=== PATIENT | female | born 1960 | race Caucasian/White ===

== ENCOUNTER 2017-12-13 19:54 | Observation (INO) | payer SELFPAY ==
--- NOTE | 2017-12-13 20:17 | PDOC ---
Rapid Medical Evaluation Time Seen by Provider: 12/13/17 20:09 Medical Evaluation: Allergies Allergy/AdvReac Type Severity Reaction Status Date / Time No Known Drug Allergies Allergy Verified 08/04/14 08:33 12/13/17 20:09 I have performed a brief in-person evaluation of this patient. The patient presents with a chief complaint of: 2 DAYS with WORSENING OF DISCOLORATION and pain TO bilateral legs, No fevers/ CP/ Palpitations. + Hx bilateral lazor vein ablation 6 years ago. Pertinent physical exam findings: non blanching macular rash extending up to groin bilateral with pain/ vasculitis appearance I have ordered the following: CBC, CMP, ESR, CRP, The patient will proceed to the ED for further evaluation. 12/13/17 20:10 12/13/17 20:17
[2017-12-13 20:46] LABS: URINE APPEARANCE CLEAR; URINE BILIRUBIN NEGATIVE (<2.0 mg/dL); URINE COLOR STRAW; URINE GLUCOSE (UA) NEGATIVE (NEGATIVE); URINE KETONE NEGATIVE (NEGATIVE); URINE LEUK ESTERASE NEGATIVE (NEGATIVE); URINE NITRITE NEGATIVE (NEGATIVE); URINE PROTEIN NEGATIVE (NEGATIVE); URINE UROBILINOGEN NEGATIVE mg/dL (0.2-1.0)
[2017-12-13 20:50] LABS: EPI CELLS RARE /HPF (FEW)
[2017-12-13 22:01] LABS: INR 1.01 (0.83-1.09); PROTHROMBIN TIME (PATIENT) 11.9 SEC (9.7-13.0)
[2017-12-13 22:03] LABS: ACTIVATED PTT 28.1 SECONDS (25.2-36.5)
[2017-12-13 22:06] LABS: BASO % 0.3 % (0-2.0); EOS % 1.7 % (0-4.5); HEMATOCRIT 26.9 % (32.4-45.2); HEMOGLOBIN 9.1 GM/dL (10.7-15.3); MCH 29.4 pg (25.7-33.7); MCHC 33.8 g/dl (32.0-36.0); MEAN CELL VOLUME 87.2 fl (80-96); MEAN PLT VOLUME 9.1 fl (7.5-11.1); MONO % 5.2 % (3.8-10.2); NEUT % 76.8 % (42.8-82.8); PLATELET COUNT 270 K/MM3 (134-434); RBC 3.09 M/mm3 (3.60-5.2); RDW 15.5 % (11.6-15.6); WHITE BLOOD COUNT 5.2 K/mm3 (4.0-10.0)
[2017-12-13 22:12] LABS: ALBUMIN 3.4 g/dl (3.4-5.0); ALK PHOS 109 U/L (45-117); ANION GAP 11 MMOL/L (8-16); BILIRUBIN,TOTAL 0.5 mg/dL (0.2-1); BLOOD UREA NITROGEN 26 mg/dL (7-18); CALCIUM 8.2 mg/dL (8.5-10.1); CHLORIDE 96 mmol/L (98-107); CO2 26 mmol/L (21-32); CREATININE 1.1 mg/dL (0.55-1.3); GLUCOSE,RANDOM 96 mg/dL (74-106); POTASSIUM 3.1 mmol/L (3.5-5.1); SGOT/AST 36 U/L (15-37); SGPT/ALT 37 U/L (13-61); SODIUM 133 mmol/L (136-145); TOT PROT 9.2 g/dl (6.4-8.2)
[2017-12-13 22:20] LABS: URINE MUCUS RARE
--- NOTE | 2017-12-13 22:24 | PDOC ---
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 Patient reports that she has a history of bilateral lower extremity edema however this is the worse it's been. In the past reports similar rash/redness which resolves 1-2 weeks. PCP: Dr. Chawla ([facility]) 12/13/17 22:42 12/13/17 23:00 Past History - Past Medical History Allergies/Adverse Reactions: Allergies Allergy/AdvReac Type Severity Reaction Status Date / Time No Known Drug Allergies Allergy Verified 08/04/14 08:33 Home Medications: Ambulatory Orders Levothyroxine [Synthroid -] 175 mcg PO DAILY 04/01/12 Losartan Potassium 50 mg PO DAILY 04/01/12 Atorvastatin Ca [Lipitor -] 20 mg PO HS 08/01/14 Hydrochlorothiazide 25 mg PO DAILY 12/14/17 Pilocarpine HCl 5 mg PO TID 12/14/17 Ferrous Sulfate 325 mg PO DAILY #30 tablet 12/15/17 Anemia: No Asthma: No Cancer: No Cardiac Disorders: No CVA: No COPD: No CHF: No DVT: No Dementia: No Diabetes: No GI Disorders: No Disorders: No HTN: Yes Hypercholesterolemia: No Liver Disease: No Seizures: No Thyroid Disease: Yes (HYPO AND HYPER. MEDS CHANGE [id number]) - Surgical History Abdominal Surgery: No Appendectomy: No Cardiac Surgery: No Cholecystectomy: No Lung Surgery: No Neurologic Surgery: No Orthopedic Surgery: No - Suicide/Smoking/Psychosocial Hx Smoking Status: No Smoking History: Never smoked Number of Cigarettes Smoked Daily: 0 Information on smoking cessation initiated: No Hx Alcohol Use: No Drug/Substance Use Hx: No Substance Use Type: None Hx Substance Use Treatment: No *Physical Exam - Vital Signs Last Vital Signs Temp Pulse Resp BP Pulse Ox 98 F 100 H 20 112/66 100 12/13/17 20:09 12/13/17 20:09 12/13/17 20:09 12/13/17 20:09 12/13/17 20:09 - Physical Exam General Appearance: Yes: Appropriately Dressed Extremity: positive: Erythema, Inflammation (b/l lower extremity erythema with petechial ) ED Treatment Course - LABORATORY CBC & Chemistry Diagram: 12/15/17 07:30 12/14/17 16:00 - ADDITIONAL ORDERS Additional order review: Laboratory Results 12/13/17 12/13/17 12/13/17 21:40 21:40 21:40 PT with INR 11.90 INR 1.01 PTT (Actin FS) 28.1 Sodium 133 L Potassium 3.1 L Chloride 96 L Carbon Dioxide 26 Anion Gap 11 BUN 26 H Creatinine 1.1 Creat Clearance w eGFR 51.57 Random Glucose 96 Calcium 8.2 L Total Bilirubin 0.5 AST 36 ALT 37 Alkaline Phosphatase 109 C-Reactive Protein 4.6 H Total Protein 9.2 H Albumin 3.4 Urine Color Urine Appearance Urine pH Ur Specific [place] Urine Protein Urine Glucose (UA) Urine Ketones Urine Blood Urine Nitrite Urine Bilirubin Urine Urobilinogen Ur Leukocyte Esterase Urine WBC (Auto) Urine RBC (Auto) Ur Epithelial Cells 12/13/17 20:20 PT with INR INR PTT (Actin FS) Sodium Potassium Chloride Carbon Dioxide Anion Gap BUN Creatinine Creat Clearance w eGFR Random Glucose Calcium Total Bilirubin AST ALT Alkaline Phosphatase C-Reactive Protein Total Protein Albumin Urine Color Straw Urine Appearance Clear Urine pH 7.0 Ur Specific [place] 1.006 L Urine Protein Negative Urine Glucose (UA) Negative Urine Ketones Negative Urine Blood 1+ H Urine Nitrite Negative Urine Bilirubin Negative Urine Urobilinogen Negative Ur Leukocyte Esterase Negative Urine WBC (Auto) 1 Urine RBC (Auto) 1 Ur Epithelial Cells Rare 12/13/17 21:40 RBC 3.09 L MCV 87.2 MCHC 33.8 RDW 15.5 MPV 9.1 Neutrophils % 76.8 Lymphocytes % 16.0 Monocytes % 5.2 Eosinophils % 1.7 D Basophils % 0.3 Medical Decision Making - Medical Decision Making A: vasculitis P: labs US 12/13/17 23:11 Patient is pending CTA chest and us of lower extremities. patient signed out to Dr. Ortega/ Dr barahona *DC/Admit/Observation/Transfer Diagnosis at time of Disposition: Vasculitis - Discharge Dispostion Disposition: HOME Condition at time of disposition: Improved Decision to Admit order: Yes - Prescriptions - Referrals - Patient Instructions - Post Discharge Activity
[2017-12-13] MEDS ORDERED: POTASSIUM CHLORIDE TABS 20 MEQ TABLET.ER (FP) PO ONE ×2 (22:25→22:41)
[2017-12-13] MEDS ORDERED: SODIUM CHLORIDE 0.9% 1000 ML INFUS.BAG IV ONE (22:55)
[2017-12-14] MEDS ORDERED: LACTATED RINGERS SOLUTION 1,000 ML/1,000 ML INFUS.BAG IV SCH (01:45)
--- NOTE | 2017-12-14 01:57 | HP ---
CHIEF COMPLAINT: B/L lower extremity edema PCP: HISTORY OF PRESENT ILLNESS: Patient is a 57 y/o female with a history of hypertension and hypothyroidism who presents with bilateral lower leg swelling and rash. Patient notes these rashes started 6 years ago and she has them on and off throughout the year. She notes at most she has them 15 times in a year. She reports that whenever she is on a plane or around heat they typically precipitate. 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 This rash and the swelling began yesterday and has continued. When she gets these symptoms they can last anywhere from a couple of days to a week. She feels pressure in her legs from the swelling that is uncomfortable. To help her symptoms she typically puts her legs up and puts cold packs on them which help a little. She uses multiple home remedies including, Epson salt, apple cider vinegar, etc. which have had little benefit. She has followed up with a PCP for these symptoms and only found to have high protein. She has also followed up with Rheumatology who has not yet provided a diagnosis for her. The rash extends from the dorsum of her foot up to below the umbilicus. She denies any sick contacts recently. She reports she feels she has a dry mouth, and moderately dry eyes. She reports she has " pre arthritis" that began a few years ago and her skin is hypersensitive to pain. She denies any other rashes, URI, nausea, vomiting, diarrhea, dysuria, hematuria , chest pain, or cough. ER course was notable for: (1) (2) (3) Recent Travel: PAST MEDICAL HISTORY: HTN and hypothyroidism PAST SURGICAL HISTORY: R knee replacement Social History: Smoking: denies Alcohol: denies Drugs: Family History: Allergies No Known Drug Allergies Allergy (Verified 08/04/14 08:33) HOME MEDICATIONS: Home Medications Medication Instructions Recorded Levothyroxine [Synthroid -] 175 mcg PO DAILY 04/01/12 Losartan Potassium 50 mg PO DAILY 04/01/12 Atorvastatin Ca [Lipitor -] 20 mg PO HS 08/01/14 REVIEW OF SYSTEMS CONSTITUTIONAL: Absent: fever, chills, diaphoresis, generalized weakness, malaise, loss of appetite, weight change HEENT: Absent: rhinorrhea, nasal congestion, throat pain, throat swelling, difficulty swallowing, mouth swelling, ear pain, eye pain, visual changes CARDIOVASCULAR: Absent: chest pain, syncope, palpitations, irregular heart rate, lightheadedness , peripheral edema RESPIRATORY: Absent: cough, shortness of breath, dyspnea with exertion, orthopnea, wheezing, stridor, hemoptysis GASTROINTESTINAL: Absent: abdominal pain, abdominal distension, nausea, vomiting, diarrhea, constipation, melena, hematochezia GENITOURINARY: Absent: dysuria, frequency, urgency, hesitancy, hematuria, flank pain, genital pain MUSCULOSKELETAL: lower extremity swelling Absent: myalgia, arthralgia, back pain, neck pain SKIN: rash Absent: itching, pallor HEMATOLOGIC/IMMUNOLOGIC: Absent: easy bleeding, easy bruising, lymphadenopathy, frequent infections ENDOCRINE: Absent: unexplained weight gain, unexplained weight loss, heat intolerance, cold intolerance NEUROLOGIC: Absent: headache, focal weakness or paresthesias, dizziness, unsteady gait, seizure, mental status changes, bladder or bowel incontinence PSYCHIATRIC: Absent: anxiety, depression, suicidal or homicidal ideation, hallucinations. PHYSICAL EXAMINATION Vital Signs - 24 hr 12/13/17 20:09 Temperature 98 F Pulse Rate 100 H Respiratory 20 Rate Blood Pressure 112/66 O2 Sat by Pulse 100 Oximetry (%) GENERAL: Awake, alert, and fully oriented, in no acute distress. HEAD: Normal with no signs of trauma. EYES: Pupils equal, round and reactive to light, extraocular movements intact, EARS, NOSE, THROAT:. Moist mucous membranes. NECK: Normal range of motion, supple without lymphadenopathy, JVD, or masses. LUNGS: Breath sounds equal, clear to auscultation bilaterally. No wheezes, and no crackles. No accessory muscle use. HEART: Regular rate and rhythm, normal S1 and S2 without murmur, rub or gallop. ABDOMEN: Tenderness to palpation RUQ. No hepatomegaly or splenomegaly. MUSCULOSKELETAL: Normal range of motion at all joints. No bony deformities or tenderness. No CVA tenderness. LOWER EXTREMITIES: 2+ pulses, warm. No calf tenderness.BL non pitting edema, NEUROLOGICAL: Cranial nerves II-XII intact. Normal speech. PSYCHIATRIC: Cooperative. Good eye contact. Appropriate mood and affect. SKIN: palpable purpura from dorsum of feet up to below umbilicus, more diffuse as closer to trunk Laboratory Results - last 24 hr CBC, BMP 12/13/17 21:40 12/13/17 21:40 ASSESSMENT/PLAN: Patient is a 57 y/o female with a history of hypertension and hypothyroidism who presents with bilateral lower leg swelling and rash. #bilateral LL swelling with purpuric rash, likely 2/2 to rheumotologic condition - increased protein at 9.2, increased CRP 4.6 - f/u consult Dr. Martino - f/u rheumatoid labs ordered - f/u iron studies, vitamin levels - f/u Derm consult, Dr. Henderson for skin biopsy - monitor on obs - unlikely PE or DVT, ddimer elevated [id number] - vascular duplex negative for DVT - CTA: no evidence of PE #Hypothyroidism - continue levothyroixine - f/u TSH #hyponatremia - f/u Na 133 - f/u serum osmoles, urine osmolality, urine Na - continue LR, and reevaluate in the morning #normocytic anemia - f/u iron studies, ferritin, transferrin #HTN - continue losartan Visit type - Emergency Visit Emergency Visit: Yes ED Registration Date: 12/14/17 Care time: The patient presented to the Emergency Department on the above date and was hospitalized for further evaluation of their emergent condition. - New Patient This patient is new to me today: Yes Date on this admission: 12/14/17 - Critical Care Critical Care patient: No
[2017-12-14 02:59] LABS: LDH 185 U/L (84-246)
--- NOTE | 2017-12-14 03:46 | PN ---
Teaching Attending Note Name of Resident: Rohini Ortega ATTENDING PHYSICIAN STATEMENT I saw and evaluated the patient. I reviewed the resident's note and discussed the case with the resident. I agree with the resident's findings and plan as documented. SUBJECTIVE: Patient is a 57 y/o HF with a PMH significant for HTN, Hypothyroidism, recurring LE rash for 'years'; today she presents to the hospital with a CC of worsening of he recurring LE rash. Please see resident note for further historical details. She has had a recurring sym LE rash extending from her feet up to her knees (but higher this time); it is beefy red and non-blanching, no petechiae, non-palpable persay but some of the larger areas do appear different than the surrounding skin. It is barely pruritic and she is not scratching. She has tried seeing MDs for this as an outpatient but has so far been unsuccessful-she got into see rheum before and her symptoms resolved (and they usually resolve in several days) prior to seeing the MD so there 'wasn't anything they could do' per the patient. She usually uses home remedies at home to help clear her sx; this includes creams and apple cider vinegar. Things that make it flare up are heat and high altitudes; she just started working in kitchen. No new soaps, detergents; no asthma or URI sx. Nobody else she knows has these sx. Never had any biopsy. Never had any diagnosis offered. The reason she will be admitted today is that this occurance is more severe in nature than her prior flare ups. Will consult rheumatology and dermatology. 10 sys ROS done and negative aside from HPI PMH and PSH per chart Denies EtOH, drug use FH asked and noncontributory for rheum issues, etc. OBJECTIVE: VSS, labs reviewed, imaging pending NAD AAO resting in bed with family at bedside B/L LE with purpuric spotting that coallesces into large patches extending sym b /l up her knees; nonblanching, no excoriations, no s/s trauma. Nonpainful to touch. NT ND +BS RRR s1/2 no mgr Lungs CTAB with sym exp NC AT EOMI PERRLA CN2-12 grossly intact with no focal neuro deficits CTA pending LE dopplers negative Rheum workup pending Anemia workup pending ER ordered what appears to be DIC pannel; negative but elevated D-Dimer to 6k Hb 9, Na 133, K 3.1, 1+ hematuria. High serum protein which she tells me is chronic ASSESSMENT AND PLAN: Mrs. Simeon is a 57 y/o HF with a PMH significant for HTN, hypothyroidism who presents with recurring LE rash (has been happening for years) that is worse today than previous flare ups. She has never reached a diagnosis for this. She is also found to have a largely elevated D-Dimer and thus will be brought to the floor for further tx and monitoring. 1) Lower Extremity Purpuric Rash -Differential is broad; considering rheum/derm diagnosis. Will need more lab information and more tests before we venture to make a specific diagnosis. Concern of course existing for vasculitis given elevated ESR and CRP with the presentation. Hemodynamically stable and has had this in the past and was self resolving; no s/s systemic involvement. Will hold off on treating at this time ; if somehow this worsens and we are forced to empirically tx steroids may be reasonable. Should mention fibrin, etc. wnl (ER screened for DIC) -Consulting Rheumatology and Dermatology -Obtaining JACQUES screen, RF, ANCA. Checking HCV and HIV screens. Working up anemia/investigating hyperproteinemia which may or may not be related to this issue 2) Elevated D-Dimer -Followup on CTA; if negative investigate other causes. 3) Normocytic Anemia -Will elucidate baseline. Checking iron studies, B12/Folate, reticulocyte count , LDH, peripheral smear -Trend CBC; XF threshold 2. 4) HTN -Monitor and keep <160mmHg here 5) Hypothyroid -Check TSH 6) Obesity (BMI 39) -Nipple Maker when clincially appropriate 7) 1+ Hematuria -Monitor, followup outpatient. 8) Euvolemic Hyponatremia -Na 133; checking serum/urine osm and urine Na -Empirically hydrating with low rate isotonic; recheck in AM and adjust fluids as needed Full Code FENA -LR@75 -Replace K -Regular diet -As tolerated
[2017-12-14] MEDS ORDERED: POTASSIUM CHLORIDE 20 MEQ PREMIX IVPB 100 ML IVPB ONE (05:40)
[2017-12-14] MEDS ORDERED: LEVOTHYROXINE NA 75 MCG TABLET (FP) ONE (06:50)
[2017-12-14] MEDS ORDERED: LEVOTHYROXINE NA 100 MCG TABLET (FP) ONE (06:50)
[2017-12-14] MEDS: LEVOTHYROXINE 100 MCG, LEVOTHYROXINE 75 MCG PO SCH (06:55)
[2017-12-14 08:39] VITALS: BMI 39.6
[2017-12-14] MEDS: LOSARTAN POTASSIUM 50 MG TABLET (FP) PO SCH (09:52)
[2017-12-14] MEDS ORDERED: LEVOTHYROXINE NA 75 MCG TABLET (FP) PO SCH (10:00)
--- NOTE | 2017-12-14 13:11 | PN ---
Teaching Attending Note Name of Resident: Jerome Vallejo ATTENDING PHYSICIAN STATEMENT I saw and evaluated the patient. I reviewed the resident's note and discussed the case with the resident. I agree with the resident's findings and plan as documented. SUBJECTIVE:c/o diffuse rash and pedal swelling. states rash has been intermittent over the past 6 years. no pattern of how long the rash last but usually several days to weeks. self resolves. seems to be exacerbated by heat and prolonged standing. self resolves. states she has diffuse pain in her legs. saw rheum once for it but did not have rash at the time and unclear what workup if any was done. denies Cp, SOB, fever, chills, n/v/C/D denies OBJECTIVE: Last Vital Signs Temp Pulse Resp BP Pulse Ox 98.1 F 72 16 109/55 L 98 12/14/17 08:08 12/14/17 08:08 12/14/17 08:08 12/14/17 08:08 12/14/17 08:08 General NAD CV S1 s2 RRR no miurmur/rub/gallop Lungs CTA B/L no wheezing/rale/rhonchi Abdomen soft NT/ND Extremities diffuse rash on both LE. irregular, does not kade not tender. spreads up to and several irregular sized spots on the lower abdomen. lesions are not raised. non pitting edema equal in both extremities ASSESSMENT AND PLAN: 57yo F with PMH hypothyroid and HTN presented to the Er with diffuse rash on B/ L LE 1. B/L LE rash-unclear etiology. possible vascutlitic vs vasc insufficiency however is also noted on the abdomen. Elevated ESR/CRP 2. Pedal swelling- dopplers neg for DVT. will check echo to r/o CHF 3. HTN - controlled. cont meds 4. Hypothyroid- on LT4 5. hypokalemia- resolved 6. Anemia- no signs of bleeding. iron panel pending. no indication for transfusion 7. DVT ppx- EAM 8. spoke with daughter present at bedside. all questions answered. verbalized understanding and agreement with plan.
--- NOTE | 2017-12-14 13:42 | PN ---
Physical Exam: SUBJECTIVE: Patient seen and examined at bedside. No acute events. Denies chest pain, sob, fever, or chills. Endorses pain in her lower extremities. OBJECTIVE: Vital Signs Period Temp Pulse Resp BP Sys/Wallace Pulse Ox Last 24 Hr 98 F-98.8 F 72-100 15-20 103-133/55-78 96-100 GENERAL: AAOx3, NAD HEAD: NC/AT, No adenopathy, MMM EYES: No scleral icterus, PERRLA, EOMI ENT: MMM NECK:Supple No JVD LUNGS: CTA B/L, No wheezing rales or rhonchi HEART: RRR No MRG S1S2 ABDOMEN: Soft NDNT No HSM EXTREMITIES: non-pitting edema b/l. NEUROLOGICAL: CN 2-12 intact PSYCH: Normal mood, normal affect. SKIN: Extensive nonblanching, nonpainful, erythematous rash b/l LE extending up to just below umbilicus. Laboratory Results - last 24 hr 12/13/17 12/13/17 12/13/17 20:20 21:40 21:40 WBC 5.2 RBC 3.09 L Hgb 9.1 L Hct 26.9 L D MCV 87.2 MCH 29.4 MCHC 33.8 RDW 15.5 Plt Count 270 MPV 9.1 Absolute Neuts (auto) 4.0 Neutrophils % 76.8 Lymphocytes % 16.0 Monocytes % 5.2 Eosinophils % 1.7 D Basophils % 0.3 Nucleated RBC % 0 ESR Retic Count PT with INR 11.90 INR 1.01 PTT (Actin FS) 28.1 Fibrinogen D-Dimer Sodium Potassium Chloride Carbon Dioxide Anion Gap BUN Creatinine Creat Clearance w eGFR Random Glucose Serum Osmolality Calcium Transferrin Ferritin Total Bilirubin AST ALT Alkaline Phosphatase LD Total C-Reactive Protein Total Protein Albumin Vitamin B12 Serum Folate TSH Urine Color Straw Urine Appearance Clear Urine pH 7.0 Ur Specific [place] 1.006 L Urine Protein Negative Urine Glucose (UA) Negative Urine Ketones Negative Urine Blood 1+ H Urine Nitrite Negative Urine Bilirubin Negative Urine Urobilinogen Negative Ur Leukocyte Esterase Negative Urine WBC (Auto) 1 Urine RBC (Auto) 1 Ur Epithelial Cells Rare Urine Mucus Rare Urine Osmolality Ur Random Sodium Rheumatoid Factor JACQUES Screen JACQUES Homogeneous Pattern JACQUES Nucleolar Pattern JACQUES Spindle Holger Pattern JACQUES Midbody Pattern JACQUES Centriole Pattern JACQUES Nuclear Dot Pattern JACQUES PCNA Pattern JACQUES Nuclear Membr Pat JACQUES Speckled Pattern JACQUES Centromere Pattern c-ANCA Proteinase 3 (PR3) p-ANCA Atypical p-ANCA Myeloperoxidase Ab HIV 1&2 Antibody Screen HIV P24 Antigen Anti-DNase B (Strep) 12/13/17 12/13/17 12/13/17 21:40 21:40 21:40 WBC RBC Hgb Hct MCV MCH MCHC RDW Plt Count MPV Absolute Neuts (auto) Neutrophils % Lymphocytes % Monocytes % Eosinophils % Basophils % Nucleated RBC % ESR 110 H Retic Count PT with INR INR PTT (Actin FS) Fibrinogen D-Dimer Sodium 133 L Potassium 3.1 L Chloride 96 L Carbon Dioxide 26 Anion Gap 11 BUN 26 H Creatinine 1.1 Creat Clearance w eGFR 51.57 Random Glucose 96 Serum Osmolality Calcium 8.2 L Transferrin Ferritin Total Bilirubin 0.5 AST 36 ALT 37 Alkaline Phosphatase 109 LD Total C-Reactive Protein 4.6 H Total Protein 9.2 H Albumin 3.4 Vitamin B12 Serum Folate TSH Urine Color Urine Appearance Urine pH Ur Specific [place] Urine Protein Urine Glucose (UA) Urine Ketones Urine Blood Urine Nitrite Urine Bilirubin Urine Urobilinogen Ur Leukocyte Esterase Urine WBC (Auto) Urine RBC (Auto) Ur Epithelial Cells Urine Mucus Urine Osmolality Ur Random Sodium Rheumatoid Factor JACQUES Screen JACQUES Homogeneous Pattern JACQUES Nucleolar Pattern JACQUES Spindle Holger Pattern JACQUES Midbody Pattern JACQUES Centriole Pattern JACQUES Nuclear Dot Pattern JACQUES PCNA Pattern JACQUES Nuclear Membr Pat JACQUES Speckled Pattern JACQUES Centromere Pattern c-ANCA Proteinase 3 (PR3) p-ANCA Atypical p-ANCA Myeloperoxidase Ab HIV 1&2 Antibody Screen HIV P24 Antigen Anti-DNase B (Strep) 12/13/17 12/14/17 12/14/17 21:40 01:57 01:57 WBC RBC Hgb Hct MCV MCH MCHC RDW Plt Count MPV Absolute Neuts (auto) Neutrophils % Lymphocytes % Monocytes % Eosinophils % Basophils % Nucleated RBC % ESR Retic Count PT with INR INR PTT (Actin FS) Fibrinogen 396.0 D-Dimer 6679 H Sodium Potassium Chloride Carbon Dioxide Anion Gap BUN Creatinine Creat Clearance w eGFR Random Glucose Serum Osmolality Calcium Transferrin Ferritin Total Bilirubin AST ALT Alkaline Phosphatase LD Total 185 C-Reactive Protein Total Protein Albumin Vitamin B12 385 Serum Folate 18 H TSH Urine Color Urine Appearance Urine pH Ur Specific [place] Urine Protein Urine Glucose (UA) Urine Ketones Urine Blood Urine Nitrite Urine Bilirubin Urine Urobilinogen Ur Leukocyte Esterase Urine WBC (Auto) Urine RBC (Auto) Ur Epithelial Cells Urine Mucus Urine Osmolality Ur Random Sodium Rheumatoid Factor JACQUES Screen Cancelled JACQUES Homogeneous Pattern Cancelled JACQUES Nucleolar Pattern Cancelled JACQUES Spindle Holger Pattern Cancelled JACQUES Midbody Pattern Cancelled JACQUES Centriole Pattern Cancelled JACQUES Nuclear Dot Pattern Cancelled JACQUES PCNA Pattern Cancelled JACQUES Nuclear Membr Pat Cancelled JACQUES Speckled Pattern Cancelled JACQUES Centromere Pattern Cancelled c-ANCA Proteinase 3 (PR3) p-ANCA Atypical p-ANCA Myeloperoxidase Ab HIV 1&2 Antibody Screen HIV P24 Antigen Anti-DNase B (Strep) 12/14/17 12/14/17 12/14/17 01:57 01:57 01:57 WBC RBC Hgb Hct MCV MCH MCHC RDW Plt Count MPV Absolute Neuts (auto) Neutrophils % Lymphocytes % Monocytes % Eosinophils % Basophils % Nucleated RBC % ESR Retic Count PT with INR INR PTT (Actin FS) Fibrinogen D-Dimer Sodium Potassium Chloride Carbon Dioxide Anion Gap BUN Creatinine Creat Clearance w eGFR Random Glucose Serum Osmolality Calcium Transferrin Ferritin 112.2 Total Bilirubin AST ALT Alkaline Phosphatase LD Total C-Reactive Protein Total Protein Albumin Vitamin B12 Serum Folate TSH 0.49 Urine Color Urine Appearance Urine pH Ur Specific [place] Urine Protein Urine Glucose (UA) Urine Ketones Urine Blood Urine Nitrite Urine Bilirubin Urine Urobilinogen Ur Leukocyte Esterase Urine WBC (Auto) Urine RBC (Auto) Ur Epithelial Cells Urine Mucus Urine Osmolality Ur Random Sodium Rheumatoid Factor JACQUES Screen JACQUES Homogeneous Pattern JACQUES Nucleolar Pattern JACQUES Spindle Holger Pattern JACQUES Midbody Pattern JACQUES Centriole Pattern JACQUES Nuclear Dot Pattern JACQUES PCNA Pattern JACQUES Nuclear Membr Pat JACQUES Speckled Pattern JACQUES Centromere Pattern c-ANCA Cancelled Proteinase 3 (PR3) Cancelled p-ANCA Cancelled Atypical p-ANCA Cancelled Myeloperoxidase Ab Cancelled HIV 1&2 Antibody Screen Negative HIV P24 Antigen Negative Anti-DNase B (Strep) Cancelled 12/14/17 12/14/17 12/14/17 01:57 01:57 01:57 WBC RBC Hgb Hct MCV MCH MCHC RDW Plt Count MPV Absolute Neuts (auto) Neutrophils % Lymphocytes % Monocytes % Eosinophils % Basophils % Nucleated RBC % ESR Retic Count 1.95 H PT with INR INR PTT (Actin FS) Fibrinogen D-Dimer Sodium Potassium Chloride Carbon Dioxide Anion Gap BUN Creatinine Creat Clearance w eGFR Random Glucose Serum Osmolality Calcium Transferrin Cancelled Ferritin Total Bilirubin AST ALT Alkaline Phosphatase LD Total C-Reactive Protein Total Protein Albumin Vitamin B12 Serum Folate TSH Urine Color Urine Appearance Urine pH Ur Specific [place] Urine Protein Urine Glucose (UA) Urine Ketones Urine Blood Urine Nitrite Urine Bilirubin Urine Urobilinogen Ur Leukocyte Esterase Urine WBC (Auto) Urine RBC (Auto) Ur Epithelial Cells Urine Mucus Urine Osmolality Ur Random Sodium Rheumatoid Factor 44.0 H JACQUES Screen JACQUES Homogeneous Pattern JACQUES Nucleolar Pattern JACQUES Spindle Holger Pattern JACQUES Midbody Pattern JACQUES Centriole Pattern JACQUES Nuclear Dot Pattern JACQUES PCNA Pattern JACQUES Nuclear Membr Pat JACQUES Speckled Pattern JACQUES Centromere Pattern c-ANCA Proteinase 3 (PR3) p-ANCA Atypical p-ANCA Myeloperoxidase Ab HIV 1&2 Antibody Screen HIV P24 Antigen Anti-DNase B (Strep) 12/14/17 12/14/17 12/14/17 06:15 06:40 06:40 WBC RBC Hgb Hct MCV MCH MCHC RDW Plt Count MPV Absolute Neuts (auto) Neutrophils % Lymphocytes % Monocytes % Eosinophils % Basophils % Nucleated RBC % ESR Retic Count PT with INR INR PTT (Actin FS) Fibrinogen D-Dimer Sodium Potassium Chloride Carbon Dioxide Anion Gap BUN Creatinine Creat Clearance w eGFR Random Glucose Serum Osmolality 293 Calcium Transferrin Ferritin Total Bilirubin AST ALT Alkaline Phosphatase LD Total C-Reactive Protein Total Protein Albumin Vitamin B12 Serum Folate TSH Urine Color Urine Appearance Urine pH Ur Specific [place] Urine Protein Urine Glucose (UA) Urine Ketones Urine Blood Urine Nitrite Urine Bilirubin Urine Urobilinogen Ur Leukocyte Esterase Urine WBC (Auto) Urine RBC (Auto) Ur Epithelial Cells Urine Mucus Urine Osmolality 202 L Ur Random Sodium 49 Rheumatoid Factor JACQUES Screen JACQUES Homogeneous Pattern JACQUES Nucleolar Pattern JACQUES Spindle Holger Pattern JACQUES Midbody Pattern JACQUES Centriole Pattern JACQUES Nuclear Dot Pattern JACQUES PCNA Pattern JACQUES Nuclear Membr Pat JACQUES Speckled Pattern JACQUES Centromere Pattern c-ANCA Proteinase 3 (PR3) p-ANCA Atypical p-ANCA Myeloperoxidase Ab HIV 1&2 Antibody Screen HIV P24 Antigen Anti-DNase B (Strep) Active Medications Generic Name Dose Route Start Last Admin Trade Name Freq PRN Reason Stop Dose Admin Atorvastatin Calcium 20 mg 12/14/17 22:00 Lipitor - PO HS RILEY Lactated Ringer's 1,000 ml in 1,000 mls @ 75 mls/hr 12/14/17 01:45 12/14/17 02:45 Lactated Ringers Solution IV 75 mls/hr ASDIR RILEY Administration Levothyroxine Sodium 100 mcg/ 175 mcg 12/14/17 07:00 12/14/17 06:55 Levothyroxine Sodium 75 mcg PO 175 mcg DAILY@0700 RILEY Administration Losartan Potassium 50 mg 12/14/17 10:00 12/14/17 09:52 Cozaar - PO 50 mg DAILY RILEY Administration ASSESSMENT/PLAN: Mrs. Simeon is a 57 y/o HF with a PMH significant for HTN, hypothyroidism who presents with recurring LE rash (6 years duration) that is worse today than previous flare ups. She has never reached a diagnosis for this. She is also found to have a largely elevated D-Dimer and thus will be brought to the floor for further tx and monitoring. # Lower Extremity Purpuric Rash. Etiology unknown. -ESR/CRP 110/4.6 -Rheumatoid Factor 44 -Dr Martino on board -Dr Henderson on board -Vasculitis vs Vasc insufficiency. Endorses rash began after receiving varicose vein treatment 6 years ago. Consult Vascular Surgery? # Elevated D-Dimer - CTA--> No evidence of Pulmonary embolism -Echo performed earlier today--> EF wnl, slight Tricuspid regurg -DVT negative # Normocytic Anemia -Trend CBC -Reticulocyte count 1.95 # HTN -Monitor and keep <160mmHg here # Hypothyroid -TSH--> 0.49 # Obesity (BMI 39) -Steam Meter Reader when clinically appropriate # 1+ Hematuria -Monitor, followup outpatient. # Euvolemic Hyponatremia -Na 133; urine Na is 49, urine osm 202. Repeat BMP 12/14/17--> Na 137, K 3.7 Fluids D/C'ed. BMP Now WNL #FEN Fluids discontinued Monitor Electrolytes Regular Diet DVT ppx: EAM, SCD's if able to apply in light of edema Visit type - Emergency Visit Emergency Visit: Yes ED Registration Date: 12/14/17 Care time: The patient presented to the Emergency Department on the above date and was hospitalized for further evaluation of their emergent condition. - New Patient This patient is new to me today: Yes Date on this admission: 12/14/17 - Critical Care Critical Care patient: No - Discharge Referral Referred to [facility] Med [facility] No
--- NOTE | 2017-12-14 14:23 | ECHO ---
Name: COLE CHASE Exam:Adult Echocardiogram Study Date: 12/14/2017 11:52 AM Age: 57 yrs Reason For Study: LOWER EXTREMITY EDEMA Height: 63 in Weight: 223 lb BSA: 2.0 m2 MMode/2D Measurements & Calculations IVSd: 0.77 cm Ao root diam: 2.8 cm LVIDd: 5.0 cm LA dimension: 3.8 cm LVIDs: 3.6 cm LVPWd: 0.80 cm EDV(Teich): 119.4 ml ESV(Teich): 53.3 ml Doppler Measurements & Calculations MV E max xavier: 95.8 cm/sec Ao V2 max: 182.5 cm/sec MV A max xavier: 78.5 cm/sec Ao max P.3 mmHg MV E/A: 1.2 MV dec time: 0.21 sec LV V1 max P.5 mmHg TR max xavier: 178.0 cm/sec LV V1 max: 127.1 cm/sec TR max P.7 mmHg Med Peak E' Xavier: 8.0 cm/sec Med E/e': 12.0 Lat Peak E' Xavier: 12.1 cm/sec Lat E/e': 7.9 Procedure A two-dimensional transthoracic echocardiogram with color flow and Doppler was performed. Left Ventricle The left ventricular size, thickness and function are normal. The left ventricular ejection fraction is normal. Ejection Fraction = 60-65%. The left ventricular wall motion is normal. Right Ventricle The right ventricle is normal in size and function. Atria Normal left and right atrial size and function. Mitral Valve There is no mitral regurgitation noted. Tricuspid Valve There is mild tricuspid regurgitation. There was insufficient TR detected to calculate RV systolic pr essure. Aortic Valve The aortic valve is trileaflet. No hemodynamically significant valvular aortic stenosis. No aortic regurgitation is present. Pulmonic Valve There is no pulmonic valvular regurgitation. Great Vessels The aortic root is normal size. Pericardium/Pleura There is no pericardial effusion. Interpretation Summary The left ventricular size, thickness and function are normal The right ventricle is normal in size and function. There is mild tricuspid regurgitation. MD Gelacio Harrington 12/14/2017 02:23 PM
--- NOTE | 2017-12-14 14:49 | EKG ---
Test Reason : Blood Pressure : / mmHG Vent. Rate : 096 BPM Atrial Rate : 096 BPM P-R Int : 172 ms QRS Dur : 082 ms QT Int : 360 ms P-R-T Axes : 067 047 053 degrees QTc Int : 454 ms NORMAL SINUS RHYTHM ABNORMAL ECG WHEN COMPARED WITH ECG OF 07-DEC-2010 13:05, NON-SPECIFIC CHANGE IN ST SEGMENT IN ANTERIOR LEADS Confirmed by CEDRIC KUMAR, JAXON ([id number]) on 12/14/2017 2:48:47 PM Referred By: Confirmed By:JAXON STEELE MD
[2017-12-14 17:45] LABS: ANION GAP 5 MMOL/L (8-16); BLOOD UREA NITROGEN 18 mg/dL (7-18); CALCIUM 8.7 mg/dL (8.5-10.1); CHLORIDE 104 mmol/L (98-107); CO2 29 mmol/L (21-32); CREATININE 1.1 mg/dL (0.55-1.3); GLUCOSE,RANDOM 86 mg/dL (74-106); POTASSIUM 3.7 mmol/L (3.5-5.1); SODIUM 139 mmol/L (136-145)
--- NOTE | 2017-12-14 18:59 | CONSULT ---
Consult - text type - Consultation Consultation Note: Dermatology Patient examined /History taken 57 yr old woman with recurrent purpuric lesions on LE for many years. Consulted to perform a biopsy of lesion. Consent for biopsy obtained. RBAT discussed with patient and her daughter. Area prepped and 3.5 mm punch biopsy performed after infiltrating the left innner thigh with 1 % lido with epi. 4.0 Suture placed . Area bandaged. post procedure instructions given. patient instructed to have sutures removed in 2 weeks Diagnosis : nonblancing purpura. Etiology unknown. R/o CTD patient being evaluated by Dr Martino Will follow Biopsy results/ serology.
[2017-12-14] MEDS ORDERED: ATORVASTATIN CA 20 MG TABLET (FP) PO SCH (22:00)
[2017-12-15] MEDS ORDERED: LEVOTHYROXINE NA 75 MCG TABLET (FP) ONE (05:55)
[2017-12-15] MEDS ORDERED: LEVOTHYROXINE NA 100 MCG TABLET (FP) ONE (05:55)
[2017-12-15 06:08] LABS: HEP.C VIRUS AB 0.1 s/co ratio (0.0-0.9)
[2017-12-15] MEDS: LEVOTHYROXINE 100 MCG, LEVOTHYROXINE 75 MCG PO SCH (06:21)
[2017-12-15] MEDS: LOSARTAN POTASSIUM 50 MG TABLET (FP) PO SCH (09:03)
[2017-12-15 09:07] LABS: HEMATOCRIT 27.4 % (32.4-45.2); HEMOGLOBIN 8.9 GM/dL (10.7-15.3); MCH 28.9 pg (25.7-33.7); MCHC 32.6 g/dl (32.0-36.0); MEAN CELL VOLUME 88.6 fl (80-96); MEAN PLT VOLUME 9.5 fl (7.5-11.1); PLATELET COUNT 280 K/MM3 (134-434); RBC 3.09 M/mm3 (3.60-5.2); RDW 15.6 % (11.6-15.6); WHITE BLOOD COUNT 2.9 K/mm3 (4.0-10.0)
--- NOTE | 2017-12-15 10:37 | PN ---
Physical Exam: SUBJECTIVE: Patient seen and examined OBJECTIVE: Vital Signs Period Temp Pulse Resp BP Sys/Wallace Pulse Ox Last 24 Hr 97.5 F-98.1 F 59-85 18-18 101-131/52-72 98-98 GENERAL: AAOx3, NAD HEAD:NC/AT EYES: EOMI PERRLA ENT: MMM NECK: Supple LUNGS: CTA b/l, GOOD INSPIRATORY EFFORT, No wheezing, rhonchi or rales HEART: RRR No MRG S1S2 ABDOMEN: Soft ND. Pain and tenderness LUQ. EXTREMITIES:Lower extremity nonpitting edema. Erythematous nonblanching rash b/ l lower extremities. NEUROLOGICAL:CN 2-12 intact PSYCH: Normal mood, normal affect. SKIN: Extensive rash b/l lower extremities extending to just under umbillicus. Laboratory Results - last 24 hr 12/14/17 12/14/17 12/14/17 01:25 06:40 16:00 WBC RBC Hgb Hct MCV MCH MCHC RDW Plt Count MPV Sodium 139 Potassium 3.7 Chloride 104 Carbon Dioxide 29 Anion Gap 5 L BUN 18 Creatinine 1.1 Creat Clearance w eGFR 51.57 Random Glucose 86 Calcium 8.7 Iron 21 L Transferrin 249 Urine Osmolality 202 L Hepatitis A IgM Ab Negative Hep Bs Antigen Negative Hep B Core IgM Ab Negative Hepatitis C Antibody 0.1 12/15/17 07:30 WBC 2.9 L RBC 3.09 L Hgb 8.9 L Hct 27.4 L MCV 88.6 MCH 28.9 MCHC 32.6 RDW 15.6 Plt Count 280 MPV 9.5 Sodium Potassium Chloride Carbon Dioxide Anion Gap BUN Creatinine Creat Clearance w eGFR Random Glucose Calcium Iron Transferrin Urine Osmolality Hepatitis A IgM Ab Hep Bs Antigen Hep B Core IgM Ab Hepatitis C Antibody Active Medications Generic Name Dose Route Start Last Admin Trade Name Freq PRN Reason Stop Dose Admin Atorvastatin Calcium 20 mg 12/14/17 22:00 12/14/17 21:24 Lipitor - PO 20 mg HS RILEY Administration Levothyroxine Sodium 100 mcg/ 175 mcg 12/14/17 07:00 12/15/17 06:21 Levothyroxine Sodium 75 mcg PO 175 mcg DAILY@0700 RILEY Administration Losartan Potassium 50 mg 12/14/17 10:00 12/15/17 09:03 Cozaar - PO 50 mg DAILY RILEY Administration ASSESSMENT/PLAN:
--- NOTE | 2017-12-15 11:29 | PN ---
Teaching Attending Note Name of Resident: Jerome Vallejo ATTENDING PHYSICIAN STATEMENT I saw and evaluated the patient. I reviewed the resident's note and discussed the case with the resident. I agree with the resident's findings and plan as documented. SUBJECTIVE:states swelling and rash has improved. denie CP, SOB, fever, chills, cough, N/V/C/D OBJECTIVE: Last Vital Signs Temp Pulse Resp BP Pulse Ox 97.7 F 85 18 122/72 98 12/15/17 09:21 12/15/17 09:21 12/15/17 09:21 12/15/17 09:21 12/15/17 09:00 General NAD Extremities diffuse pupura on B/L LE which is less confluent with some clearing noted on the lower legs. swelling improved. not tender ASSESSMENT AND PLAN: 57yo F with PMH hypothyroid and HTN presented to the Er with diffuse rash on B/ L LE 1. B/L LE rash-unclear etiology. possible vascutlitic vs vasc insufficiency however is also noted on the abdomen. Elevated ESR/CRP. rash appears to be improved. evaluated by derm last night iwth bx obtained. awaiting rheum eval for further evaluation. rash seems to be improving without treatment. possible occupational or heat exposure which precipitates it. 2. Pedal swelling- dopplers neg for DVT. Echo with no diastolic/systolic dysfunction. advised compression stockings and elevation of legs 3. HTN - controlled. cont meds 4. Hypothyroid- on LT4 5. hypokalemia- resolved 6. Anemia- no signs of bleeding. iron panel pending. no indication for transfusion 7. DVT ppx- EAM 8. spoke with son present at bedside. all questions answered. verbalized understanding and agreement with plan. anticipate d/c today. awaiting rheum input
--- NOTE | 2017-12-15 15:40 | CONSULT ---
Consult Consult Specialty:: Rheumatology - History of Present Illness History of Present Illness: 57 year old female with history of Sjogren's syndrome, HTC, Hypothyroidism, s/p right TKR, admitted with skin rash involving lower limbs. HPI. The patient reports she has a 6 year history of intermittent episodes of rash in lower limbs tat started after she had a procedure for varicose veins. 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 On this time the rash was very severe accompanied by swelling of lower limbs. A picture ofthe legs on admission reveals a significant purpuric rash, extensive, involving most of the lower limbs. Since admission she improved significantly. Yesterday she had a skin biopsy done by Dr. Henderson. Sjogren's syndrome. In 2012 the patient developed dry mouth and denies any significant dry eyes. Laboratory work-up in the past revealed anti-SSA and anti -SSB positive, rheumatoid factor 96.1 and ANA1:640 with speckled pattern. Complement was normal. HCV and CCP were negative and serum immunofixation was negative for monoclonal gammopathy. - History Source History Provided By: Patient, Medical Record Limitations to Obtaining History: No Limitations - Past Medical History Cardio/Vascular: Yes: HTN ...LMP: 09/04/12 Rheumatology: Yes: Other (Sjogren's syndrome) Endocrine: Yes: Hypothyroidism - Past Surgical History Past Surgical History: Yes: Vein Stripping/Ligation - Alcohol/Substance Use Hx Alcohol Use: Yes (occasionally) - Smoking History Smoking history: Never smoked Aproximately how many cigarettes per day: 0 Home Medications - Allergies Allergies/Adverse Reactions: Allergies Allergy/AdvReac Type Severity Reaction Status Date / Time No Known Drug Allergies Allergy Verified 08/04/14 08:33 - Home Medications Home Medications: Ambulatory Orders Levothyroxine [Synthroid -] 175 mcg PO DAILY 04/01/12 Losartan Potassium 50 mg PO DAILY 04/01/12 Atorvastatin Ca [Lipitor -] 20 mg PO HS 08/01/14 Hydrochlorothiazide 25 mg PO DAILY 12/14/17 Pilocarpine HCl 5 mg PO TID 12/14/17 Ferrous Sulfate 325 mg PO DAILY #30 tablet 12/15/17 Review of Systems - Review of Systems Constitutional: reports: No Symptoms Eyes: reports: No Symptoms HENT: reports: No Symptoms Neck: reports: No Symptoms Cardiovascular: reports: No Symptoms Respiratory: reports: No Symptoms Gastrointestinal: reports: No Symptoms Genitourinary: reports: No Symptoms Physical Exam Vital Signs: Vital Signs Temperature 98.1 F 12/15/17 13:23 Pulse Rate 80 12/15/17 13:23 Respiratory Rate 16 12/15/17 13:23 Blood Pressure 102/53 L 12/15/17 13:23 O2 Sat by Pulse Oximetry (%) 98 12/15/17 09:00 HENT: Yes: WNL Neck: Yes: WNL Cardiovascular: Yes: WNL Respiratory: Yes: WNL Gastrointestinal: Yes: WNL ...Rectal Exam: Yes: WNL Musculoskeletal: Yes: Other (Decreased salivary pool in mouth. No active joints ) Integumentary: Yes: Other (Extensive rash in lower limbs, resolving. No active lesions.) Labs: CBC, BMP 12/15/17 07:30 12/14/17 16:00 Laboratory Tests 12/13/17 12/13/17 12/14/17 20:20 21:40 01:25 ESR 110 H Retic Count LD Total TSH Urine Appearance Clear Urine pH 7.0 Ur Specific [place] 1.006 L Urine Protein Negative Urine Glucose (UA) Negative Urine Ketones Negative Urine Blood 1+ H Urine Nitrite Negative Urine Bilirubin Negative Urine Urobilinogen Negative Ur Leukocyte Esterase Negative Urine WBC (Auto) 1 Urine RBC (Auto) 1 Hepatitis A IgM Ab Negative Hep Bs Antigen Negative Hep B Core IgM Ab Negative Hepatitis C Antibody 0.1 HIV 1&2 Antibody Screen HIV P24 Antigen 12/14/17 12/14/17 12/14/17 01:57 01:57 01:57 ESR Retic Count LD Total 185 TSH 0.49 Urine Appearance Urine pH Ur Specific [place] Urine Protein Urine Glucose (UA) Urine Ketones Urine Blood Urine Nitrite Urine Bilirubin Urine Urobilinogen Ur Leukocyte Esterase Urine WBC (Auto) Urine RBC (Auto) Hepatitis A IgM Ab Hep Bs Antigen Hep B Core IgM Ab Hepatitis C Antibody HIV 1&2 Antibody Screen Negative HIV P24 Antigen Negative 12/14/17 01:57 ESR Retic Count 1.95 H LD Total TSH Urine Appearance Urine pH Ur Specific [place] Urine Protein Urine Glucose (UA) Urine Ketones Urine Blood Urine Nitrite Urine Bilirubin Urine Urobilinogen Ur Leukocyte Esterase Urine WBC (Auto) Urine RBC (Auto) Hepatitis A IgM Ab Hep Bs Antigen Hep B Core IgM Ab Hepatitis C Antibody HIV 1&2 Antibody Screen HIV P24 Antigen Problem List - Problems (1) Sjogrens syndrome Assessment/Plan: alf history of Sjogren's syndrome , with positive serology and normal complement Code(s): M35.00 - SICCA SYNDROME, UNSPECIFIED (2) Vasculitis Assessment/Plan: Rule out hypersensitivity vasculitis. Probably related to Sjogren's syndrome. Unlikely cryoglobulinemia as complement is normal. Skin biopsy was done yesterday. COntinue same medications. Code(s): I77.6 - ARTERITIS, UNSPECIFIED
[2017-12-15 18:38] VITALS: BP 104/47; PULSE 73; TEMP 97.8
--- NOTE | 2017-12-15 19:26 | DS ---
Physical Exam: SUBJECTIVE: Patient seen and examined OBJECTIVE: Vital Signs Period Temp Pulse Resp BP Sys/Wallace Pulse Ox Last 24 Hr 97.5 F-98.1 F 59-85 16-18 102-131/47-72 98-98 PHYSICAL EXAM GENERAL: The patient is awake, alert, and fully oriented, in no acute distress. HEAD: Normal with no signs of trauma. EYES: PERRL, extraocular movements intact, sclera anicteric, conjunctiva clear. ENT: Ears normal, nares patent, oropharynx clear without exudates, moist mucous membranes. NECK: Trachea midline, full range of motion, supple. LUNGS: Breath sounds equal, clear to auscultation bilaterally, no wheezes, no crackles, no accessory muscle use. HEART: Regular rate and rhythm, S1, S2 without murmur, rub or gallop. ABDOMEN: Soft, nontender, nondistended, normoactive bowel sounds, no guarding, no rebound, no hepatosplenomegaly, no masses. EXTREMITIES: 2+ pulses, warm, well-perfused, no edema. NEUROLOGICAL: Cranial nerves II through XII grossly intact. Normal speech, gait not observed. PSYCH: Normal mood, normal affect. SKIN: Warm, dry, normal turgor, no rashes or lesions noted. LABS Laboratory Results - last 24 hr 12/14/17 12/14/17 12/15/17 01:25 01:57 07:30 WBC 2.9 L RBC 3.09 L Hgb 8.9 L Hct 27.4 L MCV 88.6 MCH 28.9 MCHC 32.6 RDW 15.6 Plt Count 280 MPV 9.5 Iron 21 L Transferrin 249 NADIR-1 Antibody <0.2 Hepatitis A IgM Ab Negative Hep Bs Antigen Negative Hep B Core IgM Ab Negative Hepatitis C Antibody 0.1 HOSPITAL COURSE: Date of Admission:12/14/17 Date of Discharge: 12/15/17 Discharge Summary Reason For Visit: VASCULITIS Condition: Improved - Instructions Diet, Activity, Other Instructions: You were admitted to [facility] on 12/13/17 due to lower extremity swelling and extensive rash. Your electrolytes were also noted to be low and you were supplemented with fluids and potassium to replenish the deficit. Lower extremity ultrasound was performed to assess for blood clots in your legs, which was negative. An ultrasound of your heart called an Echocardiogram was also performed to make sure your heart wasn't responsible for your lower extremity swelling. Furthermore, a detailed imaging study called a CTA of your chest was performed to assess for a possible clot in your lugs; this was also negative. Dermatology, Dr Nirmala Henderson, saw you while your were admitted and took a biopsy of your rash. Please follow up with Dr Henderson for these results. Please also follow up with a Coiled Tubing Operator to further assess the etiology of your rash. This may be related to your Sjogren syndrome. A referral has been placed in your discharge packet. You can use compression stockings to help with the swelling in her legs Please take ferrous sulfate 325mg once a day. You should have your iron studies checked in 3 months by your primary care physician. Follow up with your primary care doctor next week. You may return to work in 1 week Referrals: Nirmala Henderson MD [Staff Physician] - Eloy Martino MD [Staff Physician] - Leta Julian MD [Non Staff, Medical] - Disposition: HOME - Home Medications Comprehensive Discharge Medication List: Ambulatory Orders Levothyroxine [Synthroid -] 175 mcg PO DAILY 04/01/12 Losartan Potassium 50 mg PO DAILY 04/01/12 Atorvastatin Ca [Lipitor -] 20 mg PO HS 08/01/14 Hydrochlorothiazide 25 mg PO DAILY 12/14/17 Pilocarpine HCl 5 mg PO TID 12/14/17 Ferrous Sulfate 325 mg PO DAILY #30 tablet 12/15/17 - Discharge Referral Referred to [facility] No
[2017-12-16 00:08] LABS: SPECKLED PATTERN >1:1280 (.)
[2017-12-18 00:07] LABS: ANTI-DNAse B 107 U/mL (0-120)
--- NOTE | 2017-12-18 15:26 | PATH ---
Surgical Pathology Report Patient Name: COLE CHASE Med. Rec. #: [id number] /Age/Gender: 1960 (Age: 57) / F Account: [id number] Location: [address] [place] [address] Taken: 12/14/2017 Received: 12/15/2017 Reported: 12/18/2017 Physicians: Pilar Lauren M.D. Specimen(s) Received SKIN PUNCH BIOPSY Clinical History Patient has 6 years history of purpuric lesions on both lower extremities, rule out vasculitis Final Diagnosis SKIN, PUNCH BIOPSY: SUPERFICIAL FRAGMENTS OF SKIN WITH SPARSE CHRONIC INFLAMMATION. Comment: Biopsy is superficial and insufficient for definitive evaluation of vascultis. Suggest clinical correlation and repeat sampling, as warranted. Electronically Signed Yary Dhillon M.D. Gross Description Received in formalin, labeled "skin punch biopsy" is a small portion of skin measuring 0.3 x 0.1 x 0.1cm. The specimen is submitted in toto in one cassette. MATTI/12/15/2017 sharon/12/15/2017
[2017-12-20 00:12] LABS: ATYPICAL pANCA <1:20 titer (Neg:<1:20); C-ANCA <1:20 titer (Neg:<1:20); P-ANCA <1:20 titer (Neg:<1:20)
== END 2017-12-15 19:03 | disposition home or self-care (01) ==
LOC: JER 19:54 → UNDOADMOB 22:48 → JERBED 22:48 → INTOOBSV 22:48 → JERBED 23:20 → UNDOADMIN 23:20 → JERBED 12-14 01:05 → J5S 12-14 06:18
PROVIDERS: ADMIT Internal Medicine; ATTEND Internal Medicine
PROC: 0HBJXZX Excision of Left Upper Leg Skin, External Approach, Diagnostic (ICD-10-PCS; principal; 2017-12-14)
PROC: 3E0337Z Introduction of Electrolytic and Water Balance Substance into Peripheral Vein, Percutaneous Approach (ICD-10-PCS; 2017-12-14)
DX: R21 Rash and other nonspecific skin eruption (principal); L29.8 Other pruritus; R60.0 Localized edema; I77.6 Arteritis, unspecified; M35.00 Sjogren syndrome, unspecified; E03.9 Hypothyroidism, unspecified; E87.6 Hypokalemia; I10 Essential (primary) hypertension; E87.1 Hypo-osmolality and hyponatremia; R31.9 Hematuria, unspecified; D64.89 Other specified anemias; R79.89 Other specified abnormal findings of blood chemistry; E66.9 Obesity, unspecified; Z68.39 Body mass index [BMI] 39.0-39.9, adult; Z96.651 Presence of right artificial knee joint
CPT/HCPCS: 36415; 71275-TC; 80048; 80053; 80074; 81003; 81015; 82607; 82728; 82746; 83520; 83540; 83615; 83930; 83935; 84300; 84443; 84466; 85025; 85027; 85044; 85379; 85384; 85610; 85651; 85730; 86038; 86140; 86215; 86235; 86256; 86431; 86803; 87389; 88305-TC; 93005; 93010; 93306-TC; 93970-TC; 99285-25; G0378; J7030

== ENCOUNTER 2018-06-07 20:54 | Inpatient (IN) | payer OTHER ==
[2018-06-07] MEDS ORDERED: ACETAMINOPHEN 325 MG TABLET (FP) PO ONE (21:13)
--- NOTE | 2018-06-07 21:16 | PDOC ---
Rapid Medical Evaluation Chief Complaint: Cold Symptoms Time Seen by Provider: 06/07/18 21:11 Medical Evaluation: Allergies Allergy/AdvReac Type Severity Reaction Status Date / Time No Known Drug Allergies Allergy Verified 08/04/14 08:33 06/07/18 21:12 57 year old female with cough, fever, vomiting and chest discomfort x 1 week. PE: patient alert ox3. cough A: sepsis; fever P: labs sepsis work up Discharge Disposition - Diagnosis Fever Qualifiers: Fever type: unspecified Qualified Code(s): R50.9 - Fever, unspecified - Referrals - Patient Instructions - Post Discharge Activity
[2018-06-07] MEDS ORDERED: ACETAMINOPHEN 325 MG TABLET (FP) ONE (21:20)
[2018-06-07 21:53] LABS: BASO % 0.9 % (0-2.0); EOS % 0.6 % (0-4.5); HEMATOCRIT 28.7 % (32.4-45.2); HEMOGLOBIN 9.8 GM/dL (10.7-15.3); LYMPH % 7.7 % (8-40); MCH 30.1 pg (25.7-33.7); MCHC 34.2 g/dl (32.0-36.0); MEAN CELL VOLUME 88.2 fl (80-96); MEAN PLT VOLUME 9.3 fl (7.5-11.1); NEUT % 89.8 % (42.8-82.8); PLATELET COUNT 290 K/MM3 (134-434); RBC 3.25 M/mm3 (3.60-5.2); WHITE BLOOD COUNT 7.4 K/mm3 (4.0-10.0)
[2018-06-07 21:55] LABS: VENOUS PC02 41.7 mmHg (41-51); VENOUS PH 7.42 (7.31-7.41)
[2018-06-07 21:59] LABS: VENOUS PO2 20.6 mmHg (30-40)
[2018-06-07 22:02] LABS: EPI CELLS 1.2 /HPF (0-5/HPF); URINE APPEARANCE CLEAR; URINE BACTERIA 57.7 /hpf (NEGATIVE); URINE BILIRUBIN NEGATIVE (NEGATIVE); URINE CASTS 0 /lpf (0-8); URINE COLOR YELLOW; URINE GLUCOSE (UA) NEGATIVE (NEGATIVE); URINE KETONE NEGATIVE (NEGATIVE); URINE LEUK ESTERASE 1+ (NEGATIVE); URINE NITRITE NEGATIVE (NEGATIVE); URINE PROTEIN NEGATIVE (NEGATIVE); URINE RBC 1 /hpf (0-4); URINE UROBILINOGEN 0.2 mg/dL (0.2-1.0); URINE WBC 3 /hpf (0-5)
[2018-06-07 22:07] LABS: INR 1.13 (0.83-1.09); PROTHROMBIN TIME (PATIENT) 13.4 SEC (9.7-13.0)
[2018-06-07 22:10] LABS: ACTIVATED PTT 27.9 SECONDS (25.2-36.5)
[2018-06-07 22:33] LABS: ALBUMIN 3.3 g/dl (3.4-5.0); ALK PHOS 111 U/L (45-117); ANION GAP 6 MMOL/L (8-16); BILIRUBIN,TOTAL 0.4 mg/dL (0.2-1); BLOOD UREA NITROGEN 23 mg/dL (7-18); CALCIUM 8.6 mg/dL (8.5-10.1); CHLORIDE 95 mmol/L (98-107); CO2 28 mmol/L (21-32); CREATININE 1.1 mg/dL (0.55-1.3); GLUCOSE,RANDOM 103 mg/dL (74-106); SGOT/AST 28 U/L (15-37); SGPT/ALT 27 U/L (13-61); SODIUM 129 mmol/L (136-145); TOT PROT 10.1 g/dl (6.4-8.2)
[2018-06-07] MEDS ORDERED: SODIUM CHLORIDE 0.9% 500 ML INFUS.BAG IV ONE ×2 (22:58→23:17)
--- NOTE | 2018-06-07 22:58 | PDOC ---
History of Present Illness - General Chief Complaint: Respiratory Stated Complaint: HIGH/FEVER CHEST PAIN VOMITING Time Seen by Provider: 06/07/18 21:11 - History of Present Illness Initial Comments: The pt is a 57F w/ a history of hypothyroidism, HTN, and Sjogren's syndrome who presents for evaluation of 1 weeks of fevers, malaise, productive cough. Associated NBNB emesis x2, diarrhea NB 2 days ago since resolved Has tried taking Robitussen and Tylenol for her symptoms with some relief Reports shingles 1.5 weeks ago, since resolved (L thorax/back) Denies dysuria, hematuria. 06/07/18 23:22 Past History - Past Medical History Allergies/Adverse Reactions: Allergies Allergy/AdvReac Type Severity Reaction Status Date / Time No Known Drug Allergies Allergy Verified 06/07/18 21:17 Home Medications: Ambulatory Orders Levothyroxine [Synthroid -] 175 mcg PO DAILY 04/01/12 Losartan Potassium 50 mg PO DAILY 04/01/12 Atorvastatin Ca [Lipitor -] 20 mg PO HS 08/01/14 Hydrochlorothiazide 25 mg PO DAILY 12/14/17 Pilocarpine HCl 5 mg PO TID 12/14/17 Ferrous Sulfate 325 mg PO DAILY #30 tablet 12/15/17 Anemia: No Asthma: No Cancer: No Cardiac Disorders: No CVA: No COPD: No CHF: No DVT: No Dementia: No Diabetes: No GI Disorders: No Disorders: No HTN: Yes Hypercholesterolemia: No Liver Disease: No Seizures: No Thyroid Disease: Yes (HYPO AND HYPER. MEDS CHANGE [id number]) - Surgical History Abdominal Surgery: No Appendectomy: No Cardiac Surgery: No Cholecystectomy: No Lung Surgery: No Neurologic Surgery: No Orthopedic Surgery: No - Suicide/Smoking/Psychosocial Hx Smoking Status: No Smoking History: Current every day smoker Number of Cigarettes Smoked Daily: 0 Information on smoking cessation initiated: No Hx Alcohol Use: No Drug/Substance Use Hx: No Substance Use Type: None Hx Substance Use Treatment: No Review of Systems - Review of Systems Able to Perform ROS?: Yes Comments:: GENERAL/CONSTITUTIONAL: No fever or chills. No weakness._ HEAD, EYES, EARS, NOSE AND THROAT: No change in vision. No ear pain or discharge. No sore throat._ CARDIOVASCULAR: No chest pain or shortness of breath_ RESPIRATORY: Denies cough, hemoptysis_ GASTROINTESTINAL: No nausea, vomiting, diarrhea or constipation._ GENITOURINARY: No dysuria, frequency, or change in urination._ MUSCULOSKELETAL: No joint or muscle swelling or pain. No neck or back pain._ SKIN: No rash_ NEUROLOGIC: No headache, vertigo, loss of consciousness, or change in strength/ sensation._ ENDOCRINE: No increased thirst. No abnormal weight change_ HEMATOLOGIC/LYMPHATIC: No anemia, easy bleeding, or history of blood clots._ ALLERGIC/IMMUNOLOGIC: No hives or skin allergy._ 06/07/18 22:57 Is the patient limited Vietnamese proficient: No *Physical Exam - Vital Signs Last Vital Signs Temp Pulse Resp BP Pulse Ox 102.3 F H 120 H 18 99/51 L 96 06/07/18 21:13 06/07/18 21:13 06/07/18 21:13 06/07/18 21:13 06/07/18 21:13 - Physical Exam Comments: GENERAL: Awake, alert, and oriented to person/place/time, in no acute distress_ HEAD: No signs of trauma, normocephalic, atraumatic _ EYES: PERRLA, EOMI, sclera anicteric, conjunctiva clear_ ENT: Hearing grossly normal, nares patent, oropharynx clear without exudates. No uvular deviation. Moist mucosa_ NECK: Normal ROM, supple, no lymphadenopathy, JVD, or masses_ LUNGS: No distress, speaks full sentences, clear to auscultation bilaterally _ HEART: Regular rate and rhythm, normal S1 and S2, no murmurs appreciated, peripheral pulses normal and equal bilaterally._ ABDOMEN: Soft, nontender, normoactive bowel sounds. No guarding, no rebound. No masses_ EXTREMITIES: Normal inspection, Normal range of motion, no edema. No clubbing or cyanosis_ NEUROLOGICAL: Cranial nerves II through XII grossly intact. Normal speech, normal gait, no focal sensorimotor deficits _ SKIN: Warm, Dry, normal turgor, no rashes or lesions noted_ 06/07/18 22:58 ED Treatment Course - LABORATORY CBC & Chemistry Diagram: 06/07/18 21:34 06/07/18 21:34 - ADDITIONAL ORDERS Additional order review: Laboratory Results 06/07/18 06/07/18 06/07/18 21:34 21:34 21:34 PT with INR INR PTT (Actin FS) VBG pH 7.42 H POC VBG pCO2 41.7 POC VBG pO2 20.6 L VBG HCO3 26.5 VBG O2 Sat (Nya) 25.6 L VBG Base Excess 2.3 H Sodium 129 L Potassium 3.0 L Chloride 95 L Carbon Dioxide 28 Anion Gap 6 L BUN 23 H Creatinine 1.1 Creat Clearance w eGFR 51.57 Random Glucose 103 Lactic Acid 1.5 Calcium 8.6 Total Bilirubin 0.4 AST 28 ALT 27 Alkaline Phosphatase 111 Troponin I < 0.02 Total Protein 10.1 H Albumin 3.3 L Urine Color Urine Appearance Urine pH Ur Specific [place] Urine Protein Urine Glucose (UA) Urine Ketones Urine Blood Urine Nitrite Urine Bilirubin Urine Urobilinogen Ur Leukocyte Esterase Urine WBC (Auto) Urine RBC (Auto) Urine Casts (Auto) U Epithel Cells (Auto) Urine Bacteria (Auto) 06/07/18 06/07/18 21:34 21:34 PT with INR 13.40 H INR 1.13 H PTT (Actin FS) 27.9 VBG pH POC VBG pCO2 POC VBG pO2 VBG HCO3 VBG O2 Sat (Nya) VBG Base Excess Sodium Potassium Chloride Carbon Dioxide Anion Gap BUN Creatinine Creat Clearance w eGFR Random Glucose Lactic Acid Calcium Total Bilirubin AST ALT Alkaline Phosphatase Troponin I Total Protein Albumin Urine Color Yellow Urine Appearance Clear Urine pH 7.0 Ur Specific [place] 1.008 L Urine Protein Negative Urine Glucose (UA) Negative Urine Ketones Negative Urine Blood Trace Urine Nitrite Negative Urine Bilirubin Negative Urine Urobilinogen 0.2 Ur Leukocyte Esterase 1+ H Urine WBC (Auto) 3 Urine RBC (Auto) 1 Urine Casts (Auto) 0 U Epithel Cells (Auto) 1.2 Urine Bacteria (Auto) 57.7 06/07/18 21:34 RBC 3.25 L MCV 88.2 MCHC 34.2 RDW 16.0 H MPV 9.3 Neutrophils % 89.8 H Lymphocytes % 7.7 L D Monocytes % 1.0 L D Eosinophils % 0.6 Basophils % 0.9 - Medications Given in the ED: ED Medications Discontinued Medications Generic Name Dose Route Start Last Admin Trade Name Freq PRN Reason Stop Dose Admin Acetaminophen 975 mg 06/07/18 21:13 06/07/18 21:22 Tylenol - PO 06/07/18 21:14 975 mg ONCE ONE Administration Medical Decision Making - Medical Decision Making The pt is a 57F w/ a history of HTN, hypothyroidism, and Sjogren's syndrome who presents for evaluation of 1 week of fevers, malaise, and cough w/ associated emesis x2. Ddx: viral syndrome vs PNA, sepsis ED Course Labs sent ECG CXR 2L NS s/p Tylenol Hyponatremia and hypokalemia -pt receiving NS -Will give KCl 40mg PO once No leukocytosis Mild anemia, will not transfuse at this time BUN elevated, pt receiving hydration Trop I neg LFTs wnl 06/07/18 23:29 Influenza B + Will give Tamiflu s/p 1 duo-neb w/ improvement in wheezing and now saturating 98% on RA 06/08/18 00:21 *DC/Admit/Observation/Transfer Diagnosis at time of Disposition: Cough, Influenza B Fever Qualifiers: Fever type: unspecified Qualified Code(s): R50.9 - Fever, unspecified Sepsis Qualifiers: Sepsis type: sepsis due to unspecified organism Qualified Code(s): A41.9 - Sepsis, unspecified organism - Discharge Dispostion Condition at time of disposition: Good Decision to Admit order: Yes - Referrals Referrals: ON STAFF,NOT [Primary Care Provider] - - Patient Instructions - Post Discharge Activity
[2018-06-07] MEDS ORDERED: POTASSIUM CHLORIDE TABS 20 MEQ TABLET.ER (FP) PO ONE ×2 (23:20→23:56)
[2018-06-07] MEDS ORDERED: PIPERACILLIN/TAZOB 4.5 GM 4.5 GM in DEXTROSE 5%-WATER 100 ML IVPB ONE (23:29)
[2018-06-07] MEDS ORDERED: ALBUTEROL SO4 2.5/IPRATROPIUM 0.5 INH SOL 3 ML VIAL.NEB. NEB SCH (23:45)
[2018-06-08] MEDS ORDERED: ALBUTEROL SO4 2.5/IPRATROPIUM 0.5 INH SOL 3 ML VIAL.NEB. NEB ONE (00:03)
[2018-06-08] MEDS ORDERED: PIPERACILLIN/TAZOB 4.5 GM 4.5 GM/100 ML BAG IVPB ONE ×2 (00:03→01:21)
[2018-06-08] MEDS ORDERED: OSELTAMIVIR PHOSPHATE 6 MG/1 ML PO ONE (00:13)
--- NOTE | 2018-06-08 00:16 | PDOC ---
Documentation entered by Russell Fall SCRIBE, acting as scribe for Franny Addison DO. Franny Addison DO: This documentation has been prepared by the Juan David fair Nirvannie, SCRIBE, under my direction and personally reviewed by me in its entirety. I confirm that the documentation accurately reflects all work, treatment, procedures, and medical decision making performed by me. Attending Attestation - Resident Resident Name: David Lozoya - ED Attending Attestation I have performed the following: I have examined & evaluated the patient, The case was reviewed & discussed with the resident, I agree w/resident's findings & plan - HPI HPI: 06/08/18 00:24 The patient is a 57 year old female, with a significant past medical history of hypothyroidism, HTN, and Sjogren's syndrome, who presents to the emergency department with, 1 week of diffuse weakness, fevers, and cough. Patient endorses approximately 2 days ago he experienced diarrhea and nausea with 2 episodes of emesis. Patient endorses a recent diagnosis of shingles approximately a week and half ago, which has since resolved. Allergies: NKDA - Physicial Exam PE: 06/08/18 00:25 Constitutional: Awake, alert, oriented. No acute distress. Head: Normocephalic. Atraumatic Eyes: PERRL. EOMI. Conjunctivae are not pale. ENT: Mucous membranes are moist and intact. Posterior pharynx without exudates or erythema. Uvula midline. Neck: Supple. Full ROM. No lymphadenopathy. Cardiovascular: +Tachycardic. Distal pulses are 2+ and symmetric. Pulmonary/Chest: +Tachypneic. +Decreased breath sounds, diffuse wheezing R>L. Short of breath. No rales or rhonchi. Abdominal: +Mild epigastric tenderness. Soft and non-distended. No rebound, guarding or rigidity. No organomegaly. No palpable masses. Good bowel sounds. Back: No CVA tenderness. Musculoskeletal: No edema. No cyanosis. No clubbing. Full range of motion in all extremities. No calf tenderness. Radial/pedal pulses are intact and 2+ bilaterally Skin: Skin is warm and dry. No petechiae. No purpura. Neurological: Alert and oriented to person, place, and time. Cranial nerves II -XII are grossly intact. Normal speech. Strength is grossly symmetric. No sensory deficits. Psychiatric: Good eye contact. Normal interaction, affect and behavior. - Medical Decision Making 06/08/18 00:09 I, Dr. Franny Addison, DO, attest that this document has been prepared under my direction and personally reviewed by me in its entirety. I further attest, that it accurately reflects all work, treatment, procedures and medical decision -making performed by me. 06/08/18 00:09 a/p: 57yo female with sob, cough, fever -decreased po intake -pt with tachycardia, febrile, tachypnic -SIRS criteria and mild hypotension upon arrival -labs, cultures, cxr, ekg ordered -slight wheezing, will add nebs -ivf hydration running 06/08/18 00:11 pt with hyponatremia, hypokalemia flu B + will add tamiflu and will need admission 06/08/18 01:04 resident discussed the case with NATI who accepts pt to service
--- NOTE | 2018-06-08 00:21 | PN ---
Teaching Attending Note Name of Resident: Cristina Cook ATTENDING PHYSICIAN STATEMENT I saw and evaluated the patient. I reviewed the resident's note and discussed the case with the resident. I agree with the resident's findings and plan as documented. SUBJECTIVE: Patient is a 57 year old woman with PMH of hypothyroidism, HTN and Sjogren's syndrome who presents to the ER with 1 week history of fever and weakness. States that during this time, she has had a subjective fever (did not measure at home), blood-tinged cough, with clear mucus. During this time, she also had two episodes of emesis, and few episodes of loose BM's without blood. Does not know how high her fever was. States that she took Robitussin, Tylenol without relief. 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 Still has nausea however without emesis. Denies chills, SOB , chest pain or pressure, or changes in urinary function. Has not had any recent dietary changes. Was treated for left sided shingles (thorax, back) approx 1.5 weeks ago - with ?acyclovir. OBJECTIVE: Alert and weak Vital Signs Period Temp Pulse Resp BP Sys/Wallace Pulse Ox Last 24 Hr 102.3 F 120 18 99/51 96-98 HEENT: No Jaundice, eye redness or discharge, PERRLA, EOMI. Normocephalic, atraumatic. External ears are normal and hearing is grossly intact. No nasal discharge. Neck: Supple, nontender. No palpable adenopathy or thyromegaly. No JVD Chest: Good effort. Clear to auscultation and percussion. Heart: Regular. No S3, rub or murmur Abdomen: Not distended, soft, nontender and no HSM. No rebound or guarding. Normal bowel sounds. Ext: Peripheral pulses intact. No leg edema. Skin: Warm and dry. No petechiae, rash or ecchymosis. Neuro: Alert. Oriented x3. CN 2-12 grossly intact. Sensation grossly intact in all four extremities and DTR are symmetric. Psych: Appropriate mood and affect. Good insight. Current Medications Generic Name Dose Route Start Last Admin Trade Name Freq PRN Reason Stop Dose Admin Atorvastatin Calcium 20 mg 06/08/18 22:00 Lipitor - PO HS RILEY Ferrous Sulfate 325 mg 06/08/18 10:00 Feosol - PO DAILY [facility] Sodium Chloride 1,000 mls @ 75 mls/hr 06/08/18 02:30 06/08/18 02:40 Normal Saline - IV 75 mls/hr ASDIR RILEY Administration Azithromycin 500 mg/ Dextrose 250 mls @ 250 mls/hr 06/08/18 02:22 IVPB DAILY RILEY Ceftriaxone Sodium 1 gm/ 50 mls @ 100 mls/hr 06/08/18 02:40 Dextrose IVPB DAILY [facility] Levothyroxine Sodium 175 mcg 06/08/18 07:00 Synthroid - PO DAILY@0700 [facility] Non-Formulary Medication 5 mg 06/08/18 06:00 Pilocarpine Hcl [Pilocarpine Hcl] PO TID [facility] Oseltamivir Phosphate 75 mg 06/08/18 12:00 Tamiflu - PO 06/13/18 11:59 BID [facility] Home Medications Medication Instructions Recorded Levothyroxine [Synthroid -] 175 mcg PO DAILY 04/01/12 Losartan Potassium 50 mg PO DAILY 04/01/12 Atorvastatin Ca [Lipitor -] 20 mg PO HS 08/01/14 Hydrochlorothiazide 25 mg PO DAILY 12/14/17 Pilocarpine HCl 5 mg PO TID 12/14/17 Ferrous Sulfate 325 mg PO DAILY #30 tablet 12/15/17 Abnormal Lab Results 06/07/18 06/07/18 06/07/18 21:34 21:34 21:34 RBC 3.25 L Hgb 9.8 L Hct 28.7 L RDW 16.0 H Neutrophils % 89.8 H Lymphocytes % 7.7 L D Monocytes % 1.0 L D PT with INR 13.40 H INR 1.13 H VBG pH POC VBG pO2 VBG O2 Sat (Nya) VBG Base Excess Sodium Potassium Chloride Anion Gap BUN Total Protein Albumin Ur Specific [place] 1.008 L Ur Leukocyte Esterase 1+ H Influenza B (Rapid) 06/07/18 06/07/18 06/07/18 21:34 21:34 23:45 RBC Hgb Hct RDW Neutrophils % Lymphocytes % Monocytes % PT with INR INR VBG pH 7.42 H POC VBG pO2 20.6 L VBG O2 Sat (Nya) 25.6 L VBG Base Excess 2.3 H Sodium 129 L Potassium 3.0 L Chloride 95 L Anion Gap 6 L BUN 23 H Total Protein 10.1 H Albumin 3.3 L Ur Specific [place] Ur Leukocyte Esterase Influenza B (Rapid) Positive A ASSESSMENT AND PLAN: 1. Sepsis due to Flu B infection - Also possible LLL infiltrate. Getting IV NS, Tamiflu, Azithromycin and Rocephin. Droplet precautions and contact isolation. Hyponatremia and hypokalemia likely due to HCTZ therapy. Will check Mg+ level, hold HCTZ for now (reduce HCTZ to 12.5 mg qd upon discharge), restrict free water intake and give IV and PO KCL. 2. Hypoalbuminemia - Possibly due to combined effects of malnutrition and inflammation associated with comorbid chronic conditions. Will ensure adequate dietary protein intake and also consult credit controller. 3. Anemia - Severe for her. Cause unknown. Needs basic and prompt anemia work up before discharge - including serial stool guaiacs, reticulocyte count and iron studies. Outpatient GI and F[facility]NA[facility]ER evaluation. 4. Obesity Counseled on the risks associated with obesity. Will provide patient all the necessary assistance, counseling and positive reinforcement to facilitate weight loss. Consult credit controller. 5.Hypertension - Restart outpatient antihypertensive drugs when clinically appropriate. At that time, reduce HCTZ to 12.5 mg qd and may increase losartan to 100 mg qd. Nonpharmacologic measures to control hypertension like weight loss , salt restriction and exercise discussed. 6. DVT prophylaxis - Lovenox 40 mg SQ q 24 hours. 7. Advance directives - Full code
[2018-06-08] MEDS ORDERED: OSELTAMIVIR PHOSPHATE 75 MG CAPSULE ONE (01:03)
[2018-06-08] MEDS ORDERED: ONDANSETRON 4 MG/2 ML VIAL IVPUSH ONE (01:14)
[2018-06-08] MEDS ORDERED: ONDANSETRON 4 MG/2 ML VIAL ONE (01:15)
[2018-06-08] MEDS ORDERED: CEFTRIAXONE 1,000 MG in DEXTROSE 5%-WATER - 50 ML IVPB SCH (02:21)
[2018-06-08] MEDS ORDERED: AZITHROMYCIN IVPB 500 MG in DEXTROSE 5%-WATER - 250 ML IVPB SCH (02:22)
[2018-06-08] MEDS ORDERED: CEFTRIAXONE 1 GM in DEXTROSE 5%-WATER - 50 ML IVPB SCH (02:40)
[2018-06-08] MEDS: SODIUM CHLORIDE 1,000 ML IV SCH (02:40)
--- NOTE | 2018-06-08 03:13 | HP ---
CHIEF COMPLAINT: fever, cough PCP: HISTORY OF PRESENT ILLNESS: 57 y/o M wth PMH hypothyroid, HTN, Sjogren's who presents to the ED c/o 1 week hx fever and weakness. States that during this time, she has had a subjective fever (did not measure at home), blood-tinged cough, with clear mucus. During this time, pt also endorses two episodes of emesis, and few episodes of loose BM 's without blood. Does not know how high her fever was. States that she took Robitussin, Tylenol without relief. Denies sick contacts, however works in a hospital kitchen. On examination, pt endorses continued nausea however without emesis. Denies chills, SOB, chest pain or pressure, or changes in urinary function. Has not had any recent dietary changes. Of note, pt was tx for L sided shingles (thorax, back) approx 1.5 weeks ago. 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 lives with family Smoking: denies Alcohol: denies Drugs: denies Family History: denies Allergies No Known Drug Allergies Allergy (Verified 06/07/18 21:17) HOME MEDICATIONS: Home Medications Medication Instructions Recorded Levothyroxine [Synthroid -] 175 mcg PO DAILY 04/01/12 Losartan Potassium 50 mg PO DAILY 04/01/12 Atorvastatin Ca [Lipitor -] 20 mg PO HS 08/01/14 Hydrochlorothiazide 25 mg PO DAILY 12/14/17 Pilocarpine HCl 5 mg PO TID 12/14/17 Ferrous Sulfate 325 mg PO DAILY #30 tablet 12/15/17 confirmed with family at bedside will need pharmacy med rec in AM REVIEW OF SYSTEMS CONSTITUTIONAL: +fever, weakness, loss of appetite Absent: fever, chills, diaphoresis, generalized weakness, malaise, loss of appetite, weight change HEENT: Absent: rhinorrhea, nasal congestion, throat pain, throat swelling, difficulty swallowing, mouth swelling, ear pain, eye pain, visual changes CARDIOVASCULAR: Absent: chest pain, syncope, palpitations, irregular heart rate, lightheadedness , peripheral edema RESPIRATORY: Absent: cough, shortness of breath, dyspnea with exertion, orthopnea, wheezing, stridor, hemoptysis GASTROINTESTINAL: +nausea, vomiting, diarrhea Absent: abdominal pain, abdominal distension, nausea, vomiting, diarrhea, constipation, melena, hematochezia GENITOURINARY: Absent: dysuria, frequency, urgency, hesitancy, hematuria, flank pain, genital pain MUSCULOSKELETAL: +myalgia Absent: myalgia, arthralgia, joint swelling, back pain, neck pain SKIN: Absent: rash, itching, pallor HEMATOLOGIC/IMMUNOLOGIC: Absent: easy bleeding, easy bruising, lymphadenopathy, frequent infections ENDOCRINE: Absent: unexplained weight gain, unexplained weight loss, heat intolerance, cold intolerance NEUROLOGIC: Absent: headache, focal weakness or paresthesias, dizziness, unsteady gait, seizure, mental status changes, bladder or bowel incontinence PSYCHIATRIC: Absent: anxiety, depression, suicidal or homicidal ideation, hallucinations. PHYSICAL EXAMINATION Vital Signs - 24 hr 06/07/18 06/08/18 21:13 02:06 Temperature 102.3 F H Pulse Rate 120 H Respiratory 18 Rate Blood Pressure 99/51 L O2 Sat by Pulse 96 98 Oximetry (%) GENERAL: Awake, alert, and fully oriented, in no acute distress. HEAD: Normal with no signs of trauma. EYES: Pupils equal, round and reactive to light, extraocular movements intact, sclera anicteric, conjunctiva clear. EARS, NOSE, THROAT: Ears normal, nares patent, oropharynx clear without exudates. Moist mucous membranes. NECK: Normal range of motion, supple LUNGS: +scattered rhonchi appreciated. no accessory m usage HEART: Regular rate and rhythm, normal S1 and S2 without murmur, rub or gallop. ABDOMEN: Soft, +diffusely TTP, not distended, normoactive bowel sounds, no guarding, no rebound, no masses. LOWER EXTREMITIES: 2+ pt pulses, warm, well-perfused. No calf tenderness. No peripheral edema. NEUROLOGICAL: Cranial nerves II-XII intact. Normal speech. Normal gait. PSYCHIATRIC: Cooperative. Laboratory Tests 06/07/18 06/07/18 06/07/18 21:34 21:34 23:45 WBC 7.4 Hgb 9.8 L Hct 28.7 L Plt Count 290 Sodium 129 L Potassium 3.0 L Chloride 95 L Carbon Dioxide 28 BUN 23 H Creatinine 1.1 AST 28 ALT 27 Influenza B (Rapid) Positive A CXR: possible L sided infiltrate. f/u official report EKG: +sinus tach, no acute st-t wave changes. qtc 428ms ASSESSMENT/PLAN: 57 y/o M wth PMH hypothyroid, HTN, Sjogren's who presents to the ED c/o 1 week hx fever and weakness. #sepsis possibly 2/2 fluB+ -may also have superimposed PNA. will also add cef, zithro. qtc 428ms -will tx with tamiflu 75mg BID, renal clearance WNL -f/u blood, ucx, legionella Ag -droplet precautions -incentive spirometer #hyponatremia -appears euvolemic. may be 2/2 hypothyroidism. asymptomatic -f/u TSH, cortisol, urine osm, serum osm, urine lytes -will start on IV NS 75 cc/hr. -follow AM level #hypokalemia -may be 2/2 vomiting, diarrhea -is also on HCTZ -has been repleted, follow level #HTN-currently w/borderline hypotension likely 2/2 sepsis -will hold anti-HTN agents at this time -cont to trend #hypothyroid -c/w synthroid -f/u TSH #Sjogren's -c/w pilocarpine #HLD -c/w lipitor #F/E/N IV NS 75 cc/hr continue to follow lytes clear liquid diet as nauseated. advance as tolerated #PPX DVT: SCD's #Dispo med-surg obs Visit type - Emergency Visit Emergency Visit: Yes ED Registration Date: 06/08/18 Care time: The patient presented to the Emergency Department on the above date and was hospitalized for further evaluation of their emergent condition. - New Patient This patient is new to me today: Yes Date on this admission: 06/08/18 - Critical Care Critical Care patient: No
[2018-06-08] MEDS ORDERED: AZITHROMYCIN IVPB 500 MG/250 ML BAG IVPB ONE (04:46)
[2018-06-08] MEDS ORDERED: PATIENT'S OWN MEDICATION (NON-FORMULARY) (Pilocarpine Hcl [Pilocarpine Hcl] 5 MG) PO SCH (06:00)
[2018-06-08] MEDS ORDERED: SODIUM CHLORIDE 0.9% 500 ML INFUS.BAG IV ONE (06:29)
[2018-06-08] MEDS ORDERED: LEVOTHYROXINE 125 MCG, LEVOTHYROXINE 50 MCG PO SCH (07:00)
[2018-06-08] MEDS ORDERED: LEVOTHYROXINE NA 175 MCG TABLET PO SCH (07:00)
[2018-06-08 07:02] LABS: BASO % 0.1 % (0-2.0); HEMATOCRIT 24.2 % (32.4-45.2); HEMOGLOBIN 8.3 GM/dL (10.7-15.3); LYMPH % 3.9 % (8-40); MCH 29.7 pg (25.7-33.7); MCHC 34.2 g/dl (32.0-36.0); MEAN CELL VOLUME 86.6 fl (80-96); MEAN PLT VOLUME 9.3 fl (7.5-11.1); MONO % 5.7 % (3.8-10.2); NEUT % 90.3 % (42.8-82.8); PLATELET COUNT 260 K/MM3 (134-434); RBC 2.79 M/mm3 (3.60-5.2); RDW 16.3 % (11.6-15.6); WHITE BLOOD COUNT 10.2 K/mm3 (4.0-10.0)
[2018-06-08 07:35] LABS: ALBUMIN 2.6 g/dl (3.4-5.0); ALK PHOS 76 U/L (45-117); ANION GAP 9 MMOL/L (8-16); BILIRUBIN,TOTAL 0.8 mg/dL (0.2-1); BLOOD UREA NITROGEN 22 mg/dL (7-18); CALCIUM 7.7 mg/dL (8.5-10.1); CHLORIDE 101 mmol/L (98-107); CO2 23 mmol/L (21-32); CREATININE 1.1 mg/dL (0.55-1.3); GLUCOSE,RANDOM 110 mg/dL (74-106); MAGNESIUM 1.8 mg/dL (1.8-2.4); PHOSPHOROUS 2.8 mg/dL (2.5-4.9); SGOT/AST 23 U/L (15-37); SGPT/ALT 21 U/L (13-61); SODIUM 133 mmol/L (136-145); TOT PROT 8.2 g/dl (6.4-8.2)
[2018-06-08] MEDS ORDERED: LEVOTHYROXINE NA 25 MCG TABLET (FP) ONE (07:36)
[2018-06-08] MEDS ORDERED: AZITHROMYCIN IVPB 500 MG/250 ML BAG IVPB SCH (08:53)
[2018-06-08 10:08] LABS: OSMOLALITY,SERUM 279 mosm/kg (278-305)
[2018-06-08] MEDS: FERROUS SO4 325 MG TABLET (FP) PO SCH (10:25)
[2018-06-08] MEDS: POTASSIUM CHLORIDE TABS 20 MEQ TABLET.ER (FP) PO SCH ×2 (10:26→21:57)
[2018-06-08 11:13] LABS: PLATELET ESTIMATE NORMAL
--- NOTE | 2018-06-08 11:23 | EKG ---
Test Reason : Blood Pressure : / mmHG Vent. Rate : 118 BPM Atrial Rate : 118 BPM P-R Int : 162 ms QRS Dur : 084 ms QT Int : 306 ms P-R-T Axes : 067 082 055 degrees QTc Int : 428 ms POOR DATA QUALITY, INTERPRETATION MAY BE ADVERSELY AFFECTED SINUS TACHYCARDIA POSSIBLE LEFT ATRIAL ENLARGEMENT ABNORMAL ECG Confirmed by CATINA BARRERA MD ([id number]) on 06/08/2018 11:23:36 AM Referred By: Confirmed By:CATINA BARRERA MD
[2018-06-08] MEDS: OSELTAMIVIR PHOSPHATE 75 MG CAPSULE PO SCH ×2 (12:30→21:58)
[2018-06-08] MEDS ORDERED: PANTOPRAZOLE 20 MG TABLET (FP) PO ONE (14:15)
[2018-06-08] MEDS ORDERED: PANTOPRAZOLE SODIUM 40 MG VIAL ONE (15:11)
--- NOTE | 2018-06-08 15:53 | PN ---
Physical Exam: SUBJECTIVE: Patient seen and examined. Pt. states she feels better than yesterday but still is complaining of shortness of breath, upper abdominal pain/ chest pain associated with respiration. OBJECTIVE: Vital Signs Period Temp Pulse Resp BP Sys/Wallace Pulse Ox Last 24 Hr 99.4 F-102.3 F 104-120 17-19 91-117/44-56 92-98 GENERAL: The patient is awake, alert, and fully oriented, in no acute distress. HEAD: Normal with no signs of trauma. EYES: PERRL, extraocular movements intact, sclera anicteric, conjunctiva clear. No ptosis. ENT: Ears normal, nares patent, oropharynx clear without exudates, moist mucous membranes. NECK: Trachea midline, full range of motion, supple. LUNGS: Breath sounds equal, clear to auscultation bilaterally, no wheezes, no crackles, no accessory muscle use. HEART: Regular rate and rhythm, S1, S2 without murmur, rub or gallop. ABDOMEN: Soft, nontender, nondistended, normoactive bowel sounds, no guarding, no rebound, no hepatosplenomegaly, no masses. EXTREMITIES: 2+ pulses, warm, well-perfused, no edema. NEUROLOGICAL: Cranial nerves II through XII grossly intact. Normal speech, gait not observed. PSYCH: Normal mood, normal affect. SKIN: Warm, dry, normal turgor, no rashes or lesions noted Laboratory Results - last 24 hr 06/07/18 06/07/18 06/07/18 21:32 21:34 21:34 WBC 7.4 RBC 3.25 L Hgb 9.8 L Hct 28.7 L MCV 88.2 MCH 30.1 MCHC 34.2 RDW 16.0 H Plt Count 290 MPV 9.3 Absolute Neuts (auto) 6.6 Neutrophils % 89.8 H Lymphocytes % 7.7 L D Monocytes % 1.0 L D Eosinophils % 0.6 Basophils % 0.9 Nucleated RBC % 0 Platelet Estimate PT with INR 13.40 H INR 1.13 H PTT (Actin FS) 27.9 VBG pH POC VBG pCO2 POC VBG pO2 VBG HCO3 VBG O2 Sat (Nya) VBG Base Excess Sodium Potassium Chloride Carbon Dioxide Anion Gap BUN Creatinine Creat Clearance w eGFR Random Glucose Serum Osmolality Lactic Acid Calcium Phosphorus Magnesium 1.8 Total Bilirubin AST ALT Alkaline Phosphatase Troponin I Total Protein Albumin TSH Urine Color Urine Appearance Urine pH Ur Specific [place] Urine Protein Urine Glucose (UA) Urine Ketones Urine Blood Urine Nitrite Urine Bilirubin Urine Urobilinogen Ur Leukocyte Esterase Urine WBC (Auto) Urine RBC (Auto) Urine Casts (Auto) U Epithel Cells (Auto) Urine Bacteria (Auto) Urine Osmolality Ur Random Creatinine Ur Random Sodium Influenza A (Rapid) Influenza B (Rapid) 06/07/18 06/07/18 06/07/18 21:34 21:34 21:34 WBC RBC Hgb Hct MCV MCH MCHC RDW Plt Count MPV Absolute Neuts (auto) Neutrophils % Lymphocytes % Monocytes % Eosinophils % Basophils % Nucleated RBC % Platelet Estimate PT with INR INR PTT (Actin FS) VBG pH 7.42 H POC VBG pCO2 41.7 POC VBG pO2 20.6 L VBG HCO3 26.5 VBG O2 Sat (Nya) 25.6 L VBG Base Excess 2.3 H Sodium 129 L Potassium 3.0 L Chloride 95 L Carbon Dioxide 28 Anion Gap 6 L BUN 23 H Creatinine 1.1 Creat Clearance w eGFR 51.57 Random Glucose 103 Serum Osmolality Lactic Acid Calcium 8.6 Phosphorus Magnesium Total Bilirubin 0.4 AST 28 ALT 27 Alkaline Phosphatase 111 Troponin I < 0.02 Total Protein 10.1 H Albumin 3.3 L TSH Urine Color Yellow Urine Appearance Clear Urine pH 7.0 Ur Specific [place] 1.008 L Urine Protein Negative Urine Glucose (UA) Negative Urine Ketones Negative Urine Blood Trace Urine Nitrite Negative Urine Bilirubin Negative Urine Urobilinogen 0.2 Ur Leukocyte Esterase 1+ H Urine WBC (Auto) 3 Urine RBC (Auto) 1 Urine Casts (Auto) 0 U Epithel Cells (Auto) 1.2 Urine Bacteria (Auto) 57.7 Urine Osmolality Ur Random Creatinine Ur Random Sodium Influenza A (Rapid) Influenza B (Rapid) 06/07/18 06/07/18 06/08/18 21:34 23:45 02:46 WBC RBC Hgb Hct MCV MCH MCHC RDW Plt Count MPV Absolute Neuts (auto) Neutrophils % Lymphocytes % Monocytes % Eosinophils % Basophils % Nucleated RBC % Platelet Estimate PT with INR INR PTT (Actin FS) VBG pH POC VBG pCO2 POC VBG pO2 VBG HCO3 VBG O2 Sat (Nya) VBG Base Excess Sodium Potassium Chloride Carbon Dioxide Anion Gap BUN Creatinine Creat Clearance w eGFR Random Glucose Serum Osmolality Lactic Acid 1.5 1.8 Calcium Phosphorus Magnesium Total Bilirubin AST ALT Alkaline Phosphatase Troponin I Total Protein Albumin TSH Urine Color Urine Appearance Urine pH Ur Specific [place] Urine Protein Urine Glucose (UA) Urine Ketones Urine Blood Urine Nitrite Urine Bilirubin Urine Urobilinogen Ur Leukocyte Esterase Urine WBC (Auto) Urine RBC (Auto) Urine Casts (Auto) U Epithel Cells (Auto) Urine Bacteria (Auto) Urine Osmolality Ur Random Creatinine Ur Random Sodium Influenza A (Rapid) Negative Influenza B (Rapid) Positive A 06/08/18 06/08/18 06/08/18 05:55 05:55 08:55 WBC 10.2 H RBC 2.79 L Hgb 8.3 L Hct 24.2 L D MCV 86.6 MCH 29.7 MCHC 34.2 RDW 16.3 H Plt Count 260 MPV 9.3 Absolute Neuts (auto) 9.2 H Neutrophils % 90.3 H Lymphocytes % 3.9 L D Monocytes % 5.7 D Eosinophils % 0.0 D Basophils % 0.1 Nucleated RBC % 0 Platelet Estimate Normal PT with INR INR PTT (Actin FS) VBG pH POC VBG pCO2 POC VBG pO2 VBG HCO3 VBG O2 Sat (Nya) VBG Base Excess Sodium 133 L Potassium 3.0 L Chloride 101 Carbon Dioxide 23 Anion Gap 9 BUN 22 H Creatinine 1.1 Creat Clearance w eGFR 51.57 Random Glucose 110 H Serum Osmolality 279 Lactic Acid Calcium 7.7 L Phosphorus 2.8 Magnesium 1.8 Total Bilirubin 0.8 AST 23 ALT 21 Alkaline Phosphatase 76 Troponin I Total Protein 8.2 Albumin 2.6 L TSH 0.04 L Urine Color Urine Appearance Urine pH Ur Specific [place] Urine Protein Urine Glucose (UA) Urine Ketones Urine Blood Urine Nitrite Urine Bilirubin Urine Urobilinogen Ur Leukocyte Esterase Urine WBC (Auto) Urine RBC (Auto) Urine Casts (Auto) U Epithel Cells (Auto) Urine Bacteria (Auto) Urine Osmolality 284 L Ur Random Creatinine Ur Random Sodium Influenza A (Rapid) Influenza B (Rapid) 06/08/18 06/08/18 08:55 08:55 WBC RBC Hgb Hct MCV MCH MCHC RDW Plt Count MPV Absolute Neuts (auto) Neutrophils % Lymphocytes % Monocytes % Eosinophils % Basophils % Nucleated RBC % Platelet Estimate PT with INR INR PTT (Actin FS) VBG pH POC VBG pCO2 POC VBG pO2 VBG HCO3 VBG O2 Sat (Nya) VBG Base Excess Sodium Potassium Chloride Carbon Dioxide Anion Gap BUN Creatinine Creat Clearance w eGFR Random Glucose Serum Osmolality Lactic Acid Calcium Phosphorus Magnesium Total Bilirubin AST ALT Alkaline Phosphatase Troponin I Total Protein Albumin TSH Urine Color Urine Appearance Urine pH Ur Specific [place] Urine Protein Urine Glucose (UA) Urine Ketones Urine Blood Urine Nitrite Urine Bilirubin Urine Urobilinogen Ur Leukocyte Esterase Urine WBC (Auto) Urine RBC (Auto) Urine Casts (Auto) U Epithel Cells (Auto) Urine Bacteria (Auto) Urine Osmolality Ur Random Creatinine 28 L Ur Random Sodium 64 Influenza A (Rapid) Influenza B (Rapid) Active Medications Home Medications Medication Instructions Recorded Levothyroxine [Synthroid -] 175 mcg PO DAILY 04/01/12 Losartan Potassium 50 mg PO DAILY 04/01/12 Atorvastatin Ca [Lipitor -] 20 mg PO HS 08/01/14 Hydrochlorothiazide 25 mg PO DAILY 12/14/17 Pilocarpine HCl 5 mg PO TID 12/14/17 Ferrous Sulfate 325 mg PO DAILY #30 tablet 12/15/17 Current Medications Atorvastatin Calcium (Lipitor -) 20 mg PO [facility] Ferrous Sulfate (Feosol -) 325 mg PO DAILY [facility] Last Admin: 06/08/18 10:25 Dose: 325 mg Sodium Chloride (Normal Saline -) 1,000 mls @ 75 mls/hr IV ASDIR [facility] Last Admin: 06/08/18 02:40 Dose: 75 mls/hr Levothyroxine Sodium (Synthroid -) 125 mcg PO DAILY@0700 [facility] Non-Formulary Medication (Pilocarpine Hcl [Pilocarpine Hcl]) 5 mg PO TID [facility] Oseltamivir Phosphate (Tamiflu -) 75 mg PO BID [facility] Stop: 06/13/18 11:59 Last Admin: 06/08/18 12:30 Dose: 75 mg Potassium Chloride (K-Dur -) 40 meq PO BID [facility] Stop: 06/08/18 22:01 Last Admin: 06/08/18 10:26 Dose: 40 meq ASSESSMENT/PLAN: 57 y.o. M w/ PMHx. of hypothyroid, HTN, Sjogren's who presents to the ED c/o 1 week Hx. fever and weakness. #Sepsis likely 2/2 fluB+ Received a dose of Ceftriaxone, Acyclovir and Azithromycin in ED C/w Tamiflu 75mg BID F/u BCx., UCx., Legionella Ag. Droplet precautions Incentive spirometer f/u PA and Lateral #Hyponatremia-resolving appears euvolemic. may be 2/2 hypothyroidism asymptomatic f/u AM cortisol Urine Osm- 284, Ur Cr.-28, Ur. Na-64 c/w IV hydration #Hypokalemia may be 2/2 vomiting, diarrhea may also be due to HCTZ c/w trend #HTN will hold anti-HTN agents at this time c/w monitoring #Hypothyroid decreased Synthroid to 125mcg TSH: 0.04 #Sjogren's c/w pilocarpine #HLD c/w lipitor #F/E/N IV NS 75 cc/hr continue to follow lytes clear liquid diet as nauseated. advance as tolerated #PPX DVT: SCD's GI: Protonix 20mg #Dispo med-surg obs Visit type - Emergency Visit Emergency Visit: Yes ED Registration Date: 06/08/18 Care time: The patient presented to the Emergency Department on the above date and was hospitalized for further evaluation of their emergent condition. - New Patient This patient is new to me today: Yes Date on this admission: 06/08/18 - Critical Care Critical Care patient: No - Discharge Referral Referred to [facility] Med [facility].C[facility] No
[2018-06-08] MEDS ORDERED: VANCOMYCIN 1,000 MG in DEXTROSE 5%-WATER - 250 ML IVPB ONE (20:22)
--- NOTE | 2018-06-08 20:26 | PN ---
Teaching Attending Note Name of Resident: Ran Hanna ATTENDING PHYSICIAN STATEMENT I saw and evaluated the patient. I reviewed the resident's note and discussed the case with the resident. I agree with the resident's findings and plan as documented. SUBJECTIVE: Feels SOB, Cough, clear sputum. No fever/chills. OBJECTIVE: Afebrile, Hemodynamically Stable. Last Vital Signs Temp Pulse Resp BP Pulse Ox 98.6 F 89 18 102/56 L 99 06/08/18 16:30 06/08/18 16:30 06/08/18 16:30 06/08/18 16:30 06/08/18 16:42 HEENT - Atraumatic, Normocephalic Heart - S1, S2, RRR Lungs - clear to auscultation, decreased air entry LLL Abdomen - soft, non-tender. Bowel Sounds normal. Extremities - no calf tenderness Laboratory Results - last 24 hr 06/07/18 06/07/18 06/07/18 21:32 21:34 21:34 WBC 7.4 RBC 3.25 L Hgb 9.8 L Hct 28.7 L MCV 88.2 MCH 30.1 MCHC 34.2 RDW 16.0 H Plt Count 290 MPV 9.3 Absolute Neuts (auto) 6.6 Neutrophils % 89.8 H Lymphocytes % 7.7 L D Monocytes % 1.0 L D Eosinophils % 0.6 Basophils % 0.9 Nucleated RBC % 0 Platelet Estimate PT with INR 13.40 H INR 1.13 H PTT (Actin FS) 27.9 VBG pH POC VBG pCO2 POC VBG pO2 VBG HCO3 VBG O2 Sat (Nya) VBG Base Excess Sodium Potassium Chloride Carbon Dioxide Anion Gap BUN Creatinine Creat Clearance w eGFR Random Glucose Serum Osmolality Lactic Acid Calcium Phosphorus Magnesium 1.8 Total Bilirubin AST ALT Alkaline Phosphatase Troponin I Total Protein Albumin TSH Urine Color Urine Appearance Urine pH Ur Specific [place] Urine Protein Urine Glucose (UA) Urine Ketones Urine Blood Urine Nitrite Urine Bilirubin Urine Urobilinogen Ur Leukocyte Esterase Urine WBC (Auto) Urine RBC (Auto) Urine Casts (Auto) U Epithel Cells (Auto) Urine Bacteria (Auto) Urine Osmolality Ur Random Creatinine Ur Random Sodium Influenza A (Rapid) Influenza B (Rapid) 06/07/18 06/07/18 06/07/18 21:34 21:34 21:34 WBC RBC Hgb Hct MCV MCH MCHC RDW Plt Count MPV Absolute Neuts (auto) Neutrophils % Lymphocytes % Monocytes % Eosinophils % Basophils % Nucleated RBC % Platelet Estimate PT with INR INR PTT (Actin FS) VBG pH 7.42 H POC VBG pCO2 41.7 POC VBG pO2 20.6 L VBG HCO3 26.5 VBG O2 Sat (Nya) 25.6 L VBG Base Excess 2.3 H Sodium 129 L Potassium 3.0 L Chloride 95 L Carbon Dioxide 28 Anion Gap 6 L BUN 23 H Creatinine 1.1 Creat Clearance w eGFR 51.57 Random Glucose 103 Serum Osmolality Lactic Acid Calcium 8.6 Phosphorus Magnesium Total Bilirubin 0.4 AST 28 ALT 27 Alkaline Phosphatase 111 Troponin I < 0.02 Total Protein 10.1 H Albumin 3.3 L TSH Urine Color Yellow Urine Appearance Clear Urine pH 7.0 Ur Specific [place] 1.008 L Urine Protein Negative Urine Glucose (UA) Negative Urine Ketones Negative Urine Blood Trace Urine Nitrite Negative Urine Bilirubin Negative Urine Urobilinogen 0.2 Ur Leukocyte Esterase 1+ H Urine WBC (Auto) 3 Urine RBC (Auto) 1 Urine Casts (Auto) 0 U Epithel Cells (Auto) 1.2 Urine Bacteria (Auto) 57.7 Urine Osmolality Ur Random Creatinine Ur Random Sodium Influenza A (Rapid) Influenza B (Rapid) 06/07/18 06/07/18 06/08/18 21:34 23:45 02:46 WBC RBC Hgb Hct MCV MCH MCHC RDW Plt Count MPV Absolute Neuts (auto) Neutrophils % Lymphocytes % Monocytes % Eosinophils % Basophils % Nucleated RBC % Platelet Estimate PT with INR INR PTT (Actin FS) VBG pH POC VBG pCO2 POC VBG pO2 VBG HCO3 VBG O2 Sat (Nya) VBG Base Excess Sodium Potassium Chloride Carbon Dioxide Anion Gap BUN Creatinine Creat Clearance w eGFR Random Glucose Serum Osmolality Lactic Acid 1.5 1.8 Calcium Phosphorus Magnesium Total Bilirubin AST ALT Alkaline Phosphatase Troponin I Total Protein Albumin TSH Urine Color Urine Appearance Urine pH Ur Specific [place] Urine Protein Urine Glucose (UA) Urine Ketones Urine Blood Urine Nitrite Urine Bilirubin Urine Urobilinogen Ur Leukocyte Esterase Urine WBC (Auto) Urine RBC (Auto) Urine Casts (Auto) U Epithel Cells (Auto) Urine Bacteria (Auto) Urine Osmolality Ur Random Creatinine Ur Random Sodium Influenza A (Rapid) Negative Influenza B (Rapid) Positive A 06/08/18 06/08/18 06/08/18 05:55 05:55 08:55 WBC 10.2 H RBC 2.79 L Hgb 8.3 L Hct 24.2 L D MCV 86.6 MCH 29.7 MCHC 34.2 RDW 16.3 H Plt Count 260 MPV 9.3 Absolute Neuts (auto) 9.2 H Neutrophils % 90.3 H Lymphocytes % 3.9 L D Monocytes % 5.7 D Eosinophils % 0.0 D Basophils % 0.1 Nucleated RBC % 0 Platelet Estimate Normal PT with INR INR PTT (Actin FS) VBG pH POC VBG pCO2 POC VBG pO2 VBG HCO3 VBG O2 Sat (Nya) VBG Base Excess Sodium 133 L Potassium 3.0 L Chloride 101 Carbon Dioxide 23 Anion Gap 9 BUN 22 H Creatinine 1.1 Creat Clearance w eGFR 51.57 Random Glucose 110 H Serum Osmolality 279 Lactic Acid Calcium 7.7 L Phosphorus 2.8 Magnesium 1.8 Total Bilirubin 0.8 AST 23 ALT 21 Alkaline Phosphatase 76 Troponin I Total Protein 8.2 Albumin 2.6 L TSH 0.04 L Urine Color Urine Appearance Urine pH Ur Specific [place] Urine Protein Urine Glucose (UA) Urine Ketones Urine Blood Urine Nitrite Urine Bilirubin Urine Urobilinogen Ur Leukocyte Esterase Urine WBC (Auto) Urine RBC (Auto) Urine Casts (Auto) U Epithel Cells (Auto) Urine Bacteria (Auto) Urine Osmolality 284 L Ur Random Creatinine Ur Random Sodium Influenza A (Rapid) Influenza B (Rapid) 06/08/18 06/08/18 08:55 08:55 WBC RBC Hgb Hct MCV MCH MCHC RDW Plt Count MPV Absolute Neuts (auto) Neutrophils % Lymphocytes % Monocytes % Eosinophils % Basophils % Nucleated RBC % Platelet Estimate PT with INR INR PTT (Actin FS) VBG pH POC VBG pCO2 POC VBG pO2 VBG HCO3 VBG O2 Sat (Nya) VBG Base Excess Sodium Potassium Chloride Carbon Dioxide Anion Gap BUN Creatinine Creat Clearance w eGFR Random Glucose Serum Osmolality Lactic Acid Calcium Phosphorus Magnesium Total Bilirubin AST ALT Alkaline Phosphatase Troponin I Total Protein Albumin TSH Urine Color Urine Appearance Urine pH Ur Specific [place] Urine Protein Urine Glucose (UA) Urine Ketones Urine Blood Urine Nitrite Urine Bilirubin Urine Urobilinogen Ur Leukocyte Esterase Urine WBC (Auto) Urine RBC (Auto) Urine Casts (Auto) U Epithel Cells (Auto) Urine Bacteria (Auto) Urine Osmolality Ur Random Creatinine 28 L Ur Random Sodium 64 Influenza A (Rapid) Influenza B (Rapid) Current Medications Generic Name Dose Route Start Last Admin Trade Name Freq PRN Reason Stop Dose Admin Atorvastatin Calcium 20 mg 06/08/18 22:00 Lipitor - PO HS [facility] Ferrous Sulfate 325 mg 06/08/18 10:00 06/08/18 10:25 Feosol - PO 325 mg DAILY [facility] Administration Sodium Chloride 1,000 mls @ 75 mls/hr 06/08/18 02:30 06/08/18 02:40 Normal Saline - IV 75 mls/hr ASDIR [facility] Administration Vancomycin HCl 1,000 mg/ 250 mls @ 166.667 mls/hr 06/08/18 20:22 Dextrose IVPB 06/08/18 21:51 ONCE ONE Protocol Levothyroxine Sodium 125 mcg 06/08/18 09:11 Synthroid - PO DAILY@0700 [facility] Non-Formulary Medication 5 mg 06/08/18 06:00 Pilocarpine Hcl [Pilocarpine Hcl] PO TID [facility] Oseltamivir Phosphate 75 mg 06/08/18 12:00 06/08/18 12:30 Tamiflu - PO 06/13/18 11:59 75 mg BID [facility] Administration Potassium Chloride 40 meq 06/08/18 10:00 06/08/18 10:26 K-Dur - PO 06/08/18 22:01 40 meq BID [facility] Administration Home Medications Medication Instructions Recorded Levothyroxine [Synthroid -] 175 mcg PO DAILY 04/01/12 Losartan Potassium 50 mg PO DAILY 04/01/12 Atorvastatin Ca [Lipitor -] 20 mg PO HS 08/01/14 Hydrochlorothiazide 25 mg PO DAILY 12/14/17 Pilocarpine HCl 5 mg PO TID 12/14/17 Ferrous Sulfate 325 mg PO DAILY #30 tablet 12/15/17 ASSESSMENT AND PLAN: 57 year old female with Hypothyroidism, Sjogren;s, presented with 1 week history of fever, weakness, cough productive of blood tinged sputum, found to be flu positive with LLL Pneumonia. 1.Sepsis secondary to Influenza and LLL CAP Flu B positive Continue treatment with Oseltamivir, Ceftriaxone, and Azithomycin (given LLL infiltrate on CXR) IV hydration Droplet precautions Sputum Cx, Urine Legionella Ag pending. 2. HTN - anti-hypertensives (HCTZ, Losartan) held due to sepsis. 3. Hypothyroidism - TSH 0.04 Levothyroxine dose decreased to 125 mcg. 3, Hypokalemia - repleted. 4. Normocytic Anemia, appears chronic as patient is on Fe supplementation at home - work-up in progress. No evidence of acute blood loss. 5. Sjogren's - continue pilocarpine 6. HLD - on Lipitor. 7. Possible Bacteremia - Blood Cx positive for Gram pos cocci in chains, likely contaminant. Will give 1 dose of Vanco empirically pending further ID and Sens. DVT Px - Heparin SQ.
[2018-06-08] MEDS ORDERED: cefTRIAXone SODIUM 1 GM VIAL ONE (21:51)
[2018-06-08] MEDS ORDERED: DEXTROSE 5%-WATER - 50 ML IVPB ONE (21:51)
[2018-06-08] MEDS: AZITHROMYCIN IVPB 500 MG/250 ML BAG IVPB SCH (21:54)
[2018-06-08] MEDS: HEPARIN NA (PORCINE) 5,000 UNITS/ML 1ML VIAL SQ SCH (21:57)
[2018-06-08] MEDS: ATORVASTATIN CA 20 MG TABLET (FP) PO SCH (21:58)
[2018-06-09] MEDS: CEFTRIAXONE 1 GM in DEXTROSE 5%-WATER - 50 ML IVPB SCH ×2 (00:34→09:24)
[2018-06-09] MEDS: HEPARIN NA (PORCINE) 5,000 UNITS/ML 1ML VIAL SQ SCH ×3 (06:05→21:01)
[2018-06-09] MEDS: LEVOTHYROXINE NA 125 MCG TABLET (FP) PO SCH (06:05)
[2018-06-09] MEDS ORDERED: cefTRIAXone SODIUM 1 GM VIAL ONE (09:20)
[2018-06-09] MEDS ORDERED: DEXTROSE 5%-WATER - 50 ML IVPB ONE (09:20)
[2018-06-09] MEDS: FERROUS SO4 325 MG TABLET (FP) PO SCH (09:24)
[2018-06-09] MEDS: OSELTAMIVIR PHOSPHATE 75 MG CAPSULE PO SCH ×2 (09:24→21:01)
[2018-06-09] MEDS: SODIUM CHLORIDE 1,000 ML IV SCH ×2 (09:30→10:55)
[2018-06-09] MEDS: AZITHROMYCIN IVPB 500 MG/250 ML BAG IVPB SCH (10:15)
[2018-06-09] MEDS ORDERED: ACETAMINOPHEN 325 MG TABLET (FP) PO ONE (10:16)
[2018-06-09 10:37] LABS: BASO % 0.4 % (0-2.0); EOS % 0.2 % (0-4.5); HEMATOCRIT 22.7 % (32.4-45.2); HEMOGLOBIN 7.8 GM/dL (10.7-15.3); MCH 30.3 pg (25.7-33.7); MCHC 34.2 g/dl (32.0-36.0); MEAN CELL VOLUME 88.5 fl (80-96); MEAN PLT VOLUME 9.9 fl (7.5-11.1); MONO % 2.6 % (3.8-10.2); NEUT % 88.8 % (42.8-82.8); PLATELET COUNT 225 K/MM3 (134-434); RBC 2.57 M/mm3 (3.60-5.2); RDW 16.7 % (11.6-15.6); WHITE BLOOD COUNT 12.7 K/mm3 (4.0-10.0)
[2018-06-09 11:10] LABS: ANION GAP 8 MMOL/L (8-16); BLOOD UREA NITROGEN 12 mg/dL (7-18); CALCIUM 8.4 mg/dL (8.5-10.1); CHLORIDE 108 mmol/L (98-107); CO2 23 mmol/L (21-32); GLUCOSE,RANDOM 114 mg/dL (74-106); POTASSIUM 3.1 mmol/L (3.5-5.1); SODIUM 139 mmol/L (136-145)
[2018-06-09] MEDS ORDERED: POTASSIUM CHLORIDE TABS 20 MEQ TABLET.ER (FP) PO ONE ×2 (12:21→17:00)
--- NOTE | 2018-06-09 12:22 | PN ---
Physical Exam: SUBJECTIVE: Patient seen and examined at bedside. Complains of continued cough productive of yellow sputum. Denies SOB, chest pain, fevers, chills, nausea, vomiting, diarrhea. OBJECTIVE: Vital Signs Period Temp Pulse Resp BP Sys/Wallace Pulse Ox Last 24 Hr 98.3 F-98.6 F 80-89 18-18 91-116/41-73 98-99 GENERAL: A&Ox3, no acute distress EYES: PERRLA, EOMI ENT: Moist mucus membranes NECK: No JVD LUNGS: rhonchorous bilaterally, no wheezes HEART: RRR, no murmurs ABDOMEN: Soft, nontender, BS present MUSCULOSKELETAL: No CVA Tenderness EXTREMITIES: 2+ pulses, no edema. NEUROLOGICAL: Cranial nerves II-XII intact. Laboratory Results - last 24 hr 06/08/18 06/09/18 06/09/18 21:35 09:50 09:50 WBC 12.7 H RBC 2.57 L Hgb 7.8 L Hct 22.7 L MCV 88.5 MCH 30.3 MCHC 34.2 RDW 16.7 H Plt Count 225 MPV 9.9 Absolute Neuts (auto) 11.3 H Neutrophils % 88.8 H Lymphocytes % 8.0 D Monocytes % 2.6 L Eosinophils % 0.2 D Basophils % 0.4 D Nucleated RBC % 0 Sodium 139 Potassium 3.1 L Chloride 108 H Carbon Dioxide 23 Anion Gap 8 BUN 12 Creatinine 1.0 Creat Clearance w eGFR 57.56 Random Glucose 114 H Calcium 8.4 L Ferritin 130.5 Vitamin B12 478 Serum Folate 17 Active Medications Generic Name Dose Route Start Last Admin Trade Name Bertq PRN Reason Stop Dose Admin Atorvastatin Calcium 20 mg 06/08/18 22:00 06/08/18 21:58 Lipitor - PO 20 mg HS RILEY Administration Ferrous Sulfate 325 mg 06/08/18 10:00 06/09/18 09:24 Feosol - PO 325 mg DAILY RILEY Administration Heparin Sodium (Porcine) 5,000 unit 06/08/18 22:00 06/09/18 06:05 Heparin - SQ 5,000 unit TID RILEY Administration Sodium Chloride 1,000 mls @ 75 mls/hr 06/08/18 02:30 06/09/18 10:55 Normal Saline - IV Not Given ASDIR RILEY Azithromycin 500 mg in 250 mls @ 500 mls/hr 06/08/18 20:30 06/09/18 10:15 Zithromax 500mg Ivpb (Pre-Docked) IVPB 500 mls/hr DAILY RILEY Administration Ceftriaxone Sodium 1 gm/ 50 mls @ 100 mls/hr 06/08/18 20:30 06/09/18 09:24 Dextrose IVPB 100 mls/hr DAILY RILEY Administration Protocol Levothyroxine Sodium 125 mcg 06/08/18 09:11 06/09/18 06:05 Synthroid - PO 125 mcg DAILY@0700 RILEY Administration Non-Formulary Medication 5 mg 06/08/18 06:00 Pilocarpine Hcl [Pilocarpine Hcl] PO TID RILEY Oseltamivir Phosphate 75 mg 06/08/18 12:00 06/09/18 09:24 Tamiflu - PO 06/13/18 11:59 75 mg BID RILEY Administration Potassium Chloride 40 meq 06/09/18 12:21 K-Dur - PO 06/09/18 12:22 ONCE ONE CBC, BMP 06/09/18 09:50 06/09/18 09:50 ASSESSMENT/PLAN: 57 y.o. M w/ PMHx. of hypothyroid, HTN, Sjogren's who presents to the ED c/o 1 week Hx. fever and weakness. #Sepsis: 2/2 combined influenza B+ and pneumonia -blood cultures growing strep pneumo in 1 bottle, repeat cultures now -continue ceftriaxone/azithromycin -continue tamiflu -Droplet precautions #Hyponatremia - resolved -continue NS #Hypokalemia: potassium 3.1 today -replete K and repeat BMP in AM #Hypertension: held meds at this time #Hypothyroid: stable -decreased Synthroid to 125mcg -TSH: 0.04 #Sjogren's c/w pilocarpine #HLD c/w lipitor #F/E/N IV NS 75 cc/hr continue to follow lytes #PPX DVT: SCD's GI: Protonix 20mg Visit type - Emergency Visit Emergency Visit: No - New Patient This patient is new to me today: No - Critical Care Critical Care patient: No
--- NOTE | 2018-06-09 14:28 | PN ---
Teaching Attending Note Name of Resident: Harman Hester ATTENDING PHYSICIAN STATEMENT I saw and evaluated the patient. I reviewed the resident's note and discussed the case with the resident. I agree with the resident's findings and plan as documented. SUBJECTIVE: SOB, Cough improving. No fever/chills. OBJECTIVE: Afebrile, Hemodynamically Stable. Last Vital Signs Temp Pulse Resp BP Pulse Ox 98.5 F 79 20 100/62 98 06/09/18 10:00 06/09/18 10:00 06/09/18 10:00 06/09/18 10:00 06/09/18 05:00 Heart - S1, S2, RRR Lungs - clear to auscultation, decreased air entry at bases Abdomen - soft, non-tender. Bowel Sounds normal. Extremities - no calf tenderness Laboratory Results - last 24 hr 06/08/18 06/09/18 06/09/18 21:35 09:50 09:50 WBC 12.7 H RBC 2.57 L Hgb 7.8 L Hct 22.7 L MCV 88.5 MCH 30.3 MCHC 34.2 RDW 16.7 H Plt Count 225 MPV 9.9 Absolute Neuts (auto) 11.3 H Neutrophils % 88.8 H Lymphocytes % 8.0 D Monocytes % 2.6 L Eosinophils % 0.2 D Basophils % 0.4 D Nucleated RBC % 0 Sodium 139 Potassium 3.1 L Chloride 108 H Carbon Dioxide 23 Anion Gap 8 BUN 12 Creatinine 1.0 Creat Clearance w eGFR 57.56 Random Glucose 114 H Calcium 8.4 L Ferritin 130.5 Vitamin B12 478 Serum Folate 17 Current Medications Generic Name Dose Route Start Last Admin Trade Name Bertq PRN Reason Stop Dose Admin Atorvastatin Calcium 20 mg 06/08/18 22:00 06/08/18 21:58 Lipitor - PO 20 mg HS RILEY Administration Ferrous Sulfate 325 mg 06/08/18 10:00 06/09/18 09:24 Feosol - PO 325 mg DAILY RILEY Administration Heparin Sodium (Porcine) 5,000 unit 06/08/18 22:00 06/09/18 14:08 Heparin - SQ 5,000 unit TID RILEY Administration Sodium Chloride 1,000 mls @ 75 mls/hr 06/08/18 02:30 06/09/18 10:55 Normal Saline - IV Not Given ASDIR RILEY Azithromycin 500 mg in 250 mls @ 500 mls/hr 06/08/18 20:30 06/09/18 10:15 Zithromax 500mg Ivpb (Pre-Docked) IVPB 500 mls/hr DAILY RILEY Administration Ceftriaxone Sodium 1 gm/ 50 mls @ 100 mls/hr 06/08/18 20:30 06/09/18 09:24 Dextrose IVPB 100 mls/hr DAILY RILEY Administration Protocol Levothyroxine Sodium 125 mcg 06/08/18 09:11 06/09/18 06:05 Synthroid - PO 125 mcg DAILY@0700 RILEY Administration Non-Formulary Medication 5 mg 06/08/18 06:00 Pilocarpine Hcl [Pilocarpine Hcl] PO TID RILEY Oseltamivir Phosphate 75 mg 06/08/18 12:00 06/09/18 09:24 Tamiflu - PO 06/13/18 11:59 75 mg BID RILEY Administration Potassium Chloride 40 meq 06/09/18 17:00 K-Dur - PO 06/09/18 17:01 ONCE ONE ASSESSMENT AND PLAN: 57 year old female with Hypothyroidism, Sjogren's, presented with 1 week history of fever, weakness, cough productive of blood tinged sputum, found to be flu positive with LLL Pneumonia. 1.Sepsis secondary to Influenza and LLL CAP with Strep Pneumonia Bacteremia Flu B positive Continue treatment with Oseltamivir, Ceftriaxone, and Azithomycin (LLL infiltrate on CXR) IV hydration Droplet precautions Repeat Blood Cx x 2 pending. 2. HTN - BP borderline, anti-hypertensives (HCTZ, Losartan) held due to sepsis. 3. Hypothyroidism - TSH 0.04 Levothyroxine dose decreased to 125 mcg. 3, Hypokalemia - recurrent, will replete. 4. Normocytic Anemia, H/H 7.8/22.7 - appears chronic as patient is on Fe supplementation at home - work-up in progress. No evidence of acute blood loss. 5. Sjogren's - continue pilocarpine 6. HLD - on Lipitor. 7. Urine Cx pos for LFNB < 40,000 CFU/ml - on Ceftriaxone for Pneumonia. DVT Px - Heparin SQ.
[2018-06-09] MEDS: ATORVASTATIN CA 20 MG TABLET (FP) PO SCH (21:01)
[2018-06-10] MEDS: SODIUM CHLORIDE 1,000 ML IV SCH (02:03)
[2018-06-10] MEDS: LEVOTHYROXINE NA 125 MCG TABLET (FP) PO SCH (06:01)
[2018-06-10] MEDS: HEPARIN NA (PORCINE) 5,000 UNITS/ML 1ML VIAL SQ SCH ×3 (06:03→21:42)
[2018-06-10 06:36] LABS: SERUM IRON SATURATION 4 % (15-55); TOTAL IRON BINDING CAPACITY 248 ug/dL (250-450); UIBC 237 ug/dL (131-425)
[2018-06-10] MEDS ORDERED: DEXTROSE 5%-WATER - 50 ML IVPB ONE (08:34)
[2018-06-10] MEDS ORDERED: cefTRIAXone SODIUM 1 GM VIAL ONE (08:34)
[2018-06-10 09:07] LABS: HEMATOCRIT 23.7 % (32.4-45.2); HEMOGLOBIN 7.9 GM/dL (10.7-15.3); MCH 29.7 pg (25.7-33.7); MCHC 33.3 g/dl (32.0-36.0); MEAN CELL VOLUME 89.2 fl (80-96); MEAN PLT VOLUME 10.1 fl (7.5-11.1); PLATELET COUNT 244 K/MM3 (134-434); RBC 2.66 M/mm3 (3.60-5.2); RDW 16.8 % (11.6-15.6); WHITE BLOOD COUNT 6.8 K/mm3 (4.0-10.0)
[2018-06-10] MEDS: FERROUS SO4 325 MG TABLET (FP) PO SCH (09:23)
[2018-06-10] MEDS: CEFTRIAXONE 1 GM in DEXTROSE 5%-WATER - 50 ML IVPB SCH (09:23)
[2018-06-10] MEDS: OSELTAMIVIR PHOSPHATE 75 MG CAPSULE PO SCH ×2 (09:23→21:42)
[2018-06-10 09:35] LABS: ALBUMIN 2.3 g/dl (3.4-5.0); ALK PHOS 77 U/L (45-117); ANION GAP 5 MMOL/L (8-16); BILIRUBIN,TOTAL 0.4 mg/dL (0.2-1); BLOOD UREA NITROGEN 9 mg/dL (7-18); CALCIUM 8.4 mg/dL (8.5-10.1); CHLORIDE 113 mmol/L (98-107); CO2 22 mmol/L (21-32); CREATININE 0.8 mg/dL (0.55-1.3); GLUCOSE,RANDOM 77 mg/dL (74-106); MAGNESIUM 2.2 mg/dL (1.8-2.4); PHOSPHOROUS 2.7 mg/dL (2.5-4.9); POTASSIUM 4.2 mmol/L (3.5-5.1); SGOT/AST 15 U/L (15-37); SGPT/ALT 17 U/L (13-61); SODIUM 140 mmol/L (136-145); TOT PROT 8.2 g/dl (6.4-8.2)
[2018-06-10] MEDS: AZITHROMYCIN IVPB 500 MG/250 ML BAG IVPB SCH (10:00)
--- NOTE | 2018-06-10 11:21 | PN ---
Progress Note (short form) - Note Progress Note: c/o multiple painful oral ulcers around the lips and on the tongue. started this AM. had them before but never to this degree. states also has difficulty breathing although overall improved. +cough productive of yellow sputum. denies CP, fever, chills, N/V/C/D Current Medications Generic Name Dose Route Start Last Admin Trade Name Freq PRN Reason Stop Dose Admin Atorvastatin Calcium 20 mg 06/08/18 22:00 06/09/18 21:01 Lipitor - PO 20 mg HS RILEY Administration Ferrous Sulfate 325 mg 06/08/18 10:00 06/10/18 09:23 Feosol - PO 325 mg DAILY RILEY Administration Heparin Sodium (Porcine) 5,000 unit 06/08/18 22:00 06/10/18 06:03 Heparin - SQ 5,000 unit TID RILEY Administration Sodium Chloride 1,000 mls @ 75 mls/hr 06/08/18 02:30 06/10/18 02:03 Normal Saline - IV 75 mls/hr ASDIR RILEY Administration Azithromycin 500 mg in 250 mls @ 500 mls/hr 06/08/18 20:30 06/10/18 10:00 Zithromax 500mg Ivpb (Pre-Docked) IVPB 500 mls/hr DAILY RILEY Administration Ceftriaxone Sodium 1 gm/ 50 mls @ 100 mls/hr 06/08/18 20:30 06/10/18 09:23 Dextrose IVPB 100 mls/hr DAILY RILEY Administration Protocol Levothyroxine Sodium 125 mcg 06/08/18 09:11 06/10/18 06:01 Synthroid - PO 125 mcg DAILY@0700 RILEY Administration Non-Formulary Medication 5 mg 06/08/18 06:00 Pilocarpine Hcl [Pilocarpine Hcl] PO TID RILEY Oseltamivir Phosphate 75 mg 06/08/18 12:00 06/10/18 09:23 Tamiflu - PO 06/13/18 11:59 75 mg BID RILEY Administration Last Vital Signs Temp Pulse Resp BP Pulse Ox 98.4 F 69 20 108/64 97 06/10/18 10:00 06/10/18 10:00 06/10/18 10:00 06/10/18 10:00 06/09/18 21:00 General NAD HEENT unroofed ulcers along the jurgen border of the lower lip. vessicle on R lateral tongue and small one on the L tip of the tongue. no oozing appreciated at these sites. no surrounding erythema CV S1 S2 RRR no murmur/rub/gallop Lungs decreased breath sounds B/L bases Abdomen soft NT/ND Extremities no pedal edema CBCD WBC 6.8 K/mm3 (4.0-10.0) 06/10/18 07:45 RBC 2.66 M/mm3 (3.60-5.2) L 06/10/18 07:45 Hgb 7.9 GM/dL (10.7-15.3) L 06/10/18 07:45 Hct 23.7 % (32.4-45.2) L 06/10/18 07:45 MCV 89.2 fl (80-96) 06/10/18 07:45 MCHC 33.3 g/dl (32.0-36.0) 06/10/18 07:45 RDW 16.8 % (11.6-15.6) H 06/10/18 07:45 Plt Count 244 K/MM3 (134-434) 06/10/18 07:45 MPV 10.1 fl (7.5-11.1) 06/10/18 07:45 CMP Sodium 140 mmol/L (136-145) 06/10/18 07:45 Potassium 4.2 mmol/L (3.5-5.1) 06/10/18 07:45 Chloride 113 mmol/L (98-107) H 06/10/18 07:45 Carbon Dioxide 22 mmol/L (21-32) 06/10/18 07:45 Anion Gap 5 MMOL/L (8-16) L 06/10/18 07:45 BUN 9 mg/dL (7-18) 06/10/18 07:45 Creatinine 0.8 mg/dL (0.55-1.3) 06/10/18 07:45 Creat Clearance w eGFR 74.47 (>60) 06/10/18 07:45 Calcium 8.4 mg/dL (8.5-10.1) L 06/10/18 07:45 Total Bilirubin 0.4 mg/dL (0.2-1) 06/10/18 07:45 AST 15 U/L (15-37) 06/10/18 07:45 ALT 17 U/L (13-61) 06/10/18 07:45 Alkaline Phosphatase 77 U/L (45-117) 06/10/18 07:45 Total Protein 8.2 g/dl (6.4-8.2) 06/10/18 07:45 Albumin 2.3 g/dl (3.4-5.0) L 06/10/18 07:45 Microbiology 06/07/18 21:34 Urine Culture - Final Urine - Urine Clean Catch Escherichia Coli 06/07/18 21:34 Blood Culture - Final Blood - Peripheral Venous Streptococcus Pneumoniae 06/09/18 09:50 Blood Culture - Preliminary Blood - Peripheral Venous NO GROWTH OBTAINED AFTER 24 HOURS, INCUBATION TO CONTINUE FOR 4 DAYS. 06/09/18 10:00 Blood Culture - Preliminary Blood - Peripheral Venous NO GROWTH OBTAINED AFTER 24 HOURS, INCUBATION TO CONTINUE FOR 4 DAYS. 06/07/18 05:55 Blood Culture - Preliminary Blood - Peripheral Venous NO GROWTH OBTAINED AFTER 48 HOURS, INCUBATION TO CONTINUE FOR 3 DAYS. 06/08/18 08:55 Legionella Antigen - Final Urine For Antigen Detection Streptococcus pneumoniae Antigen (M - Final ASSESSMENT AND PLAN: 57 year old female with Hypothyroidism, Sjogren's, presented with 1 week history of fever, weakness, cough productive of blood tinged sputum, found to be flu positive with LLL Pneumonia. 1.Sepsis secondary to Influenza and LLL CAP with Strep Pneumonia Bacteremia- continues to have cough making the ability to talk difficult. will obtain sputum cx. chest PT. cont with Oseltamivir, Ceftriaxone, and Azithomycin day 3. repeat bcx negative. droplet precautions 2. oral herpetic lesions- multiple painful ulcers along the lips highly suggestive of Herpes. does not have known diagnosis. start acylcovir 400mg TID x5 days 3. iron def anemia- iron studies remain low. will need to determine how long been on therapy and if would benefit from venofer. Hgb slowly trending down will monitor closely 4. HTN- normotensive. hold oral agents 5. Hypothyroid- TSH low here. LT4 dose reduced. will need repeat TFT in 6w 6. Ucx- likley colonization as colony count is low and asymptomatic. will not treat 7. sjogren- on pilocarprine 8. dyslipidemia- statin 9. DVT Px - Heparin SQ. 10. spoke with daughter present at bedside. all questions answered. verbalized understanding and agreement with plan Visit type - Emergency Visit Emergency Visit: Yes ED Registration Date: 06/08/18 Care time: The patient presented to the Emergency Department on the above date and was hospitalized for further evaluation of their emergent condition. - New Patient This patient is new to me today: Yes Date on this admission: 06/10/18 - Critical Care Critical Care patient: No - Discharge Referral Referred to [facility] Med P.C.: No
[2018-06-10] MEDS ORDERED: PT OWN MED DRAWER 7, Y5N ONE ×2 (14:03→20:38)
[2018-06-10] MEDS: ACYCLOVIR 400 MG TABLET PO SCH ×2 (14:08→21:42)
[2018-06-10 16:36] VITALS: BMI 38.9
[2018-06-10] MEDS: ATORVASTATIN CA 20 MG TABLET (FP) PO SCH (21:42)
[2018-06-11] MEDS ORDERED: PT OWN MED DRAWER 7, Y5N ONE (05:35)
[2018-06-11] MEDS: HEPARIN NA (PORCINE) 5,000 UNITS/ML 1ML VIAL SQ SCH ×3 (05:56→21:40)
[2018-06-11] MEDS: ACYCLOVIR 400 MG TABLET PO SCH ×3 (05:57→21:41)
[2018-06-11 07:41] LABS: HEMATOCRIT 25.6 % (32.4-45.2); HEMOGLOBIN 8.7 GM/dL (10.7-15.3); MCH 30.1 pg (25.7-33.7); MCHC 33.9 g/dl (32.0-36.0); MEAN CELL VOLUME 88.7 fl (80-96); PLATELET COUNT 272 K/MM3 (134-434); RBC 2.89 M/mm3 (3.60-5.2); RDW 16.5 % (11.6-15.6)
[2018-06-11] MEDS ORDERED: DEXTROSE 5%-WATER - 50 ML IVPB ONE (10:30)
[2018-06-11] MEDS ORDERED: cefTRIAXone SODIUM 1 GM VIAL ONE (10:30)
[2018-06-11] MEDS: CEFTRIAXONE 1 GM in DEXTROSE 5%-WATER - 50 ML IVPB SCH (10:42)
[2018-06-11] MEDS: AZITHROMYCIN IVPB 500 MG/250 ML BAG IVPB SCH (10:44)
[2018-06-11] MEDS: LEVOTHYROXINE NA 125 MCG TABLET (FP) PO SCH (10:45)
[2018-06-11] MEDS: FERROUS SO4 325 MG TABLET (FP) PO SCH (10:45)
[2018-06-11] MEDS: OSELTAMIVIR PHOSPHATE 75 MG CAPSULE PO SCH ×2 (10:55→21:41)
--- NOTE | 2018-06-11 13:29 | PN ---
Physical Exam: SUBJECTIVE: Patient seen and examined. Pt. endorses pruritic mouth sores since yesterday. Pt. denies any fever or chills overnight. Pt. states she is feeling better than yesterday. OBJECTIVE: Vital Signs Period Temp Pulse Resp BP Sys/Wallace Pulse Ox Last 24 Hr 97.6 F-98.9 F 63-73 18-20 109-138/58-73 GENERAL: The patient is awake, alert, and fully oriented, in no acute distress. HEAD: Normal with no signs of trauma. EYES: extraocular movements intact, sclera anicteric, conjunctiva clear. No ptosis. ENT: Ears normal, nares patent, herpetic lesions on external lips, moist mucous membranes. NECK: Trachea midline, full range of motion, supple. LUNGS: Breath sounds equal, clear to auscultation bilaterally, no wheezes, no crackles, no accessory muscle use. HEART: Regular rate and rhythm, S1, S2 without murmur, rub or gallop. ABDOMEN: Soft, nontender, nondistended, normoactive bowel sounds, no guarding, no rebound, no hepatosplenomegaly, no masses. EXTREMITIES: 2+ radial pulses, warm, well-perfused, no edema. NEUROLOGICAL: Normal speech, gait not observed. PSYCH: Normal mood, normal affect. SKIN: Warm, dry, normal turgor, no rashes or lesions noted Laboratory Results - last 24 hr 06/11/18 06:50 WBC 5.0 RBC 2.89 L Hgb 8.7 L Hct 25.6 L MCV 88.7 MCH 30.1 MCHC 33.9 RDW 16.5 H Plt Count 272 MPV 10.0 Active Medications Home Medications Medication Instructions Recorded Levothyroxine [Synthroid -] 175 mcg PO DAILY 04/01/12 Losartan Potassium 50 mg PO DAILY 04/01/12 Atorvastatin Ca [Lipitor -] 20 mg PO HS 08/01/14 Hydrochlorothiazide 25 mg PO DAILY 12/14/17 Pilocarpine HCl 5 mg PO TID 12/14/17 Ferrous Sulfate 325 mg PO DAILY #30 tablet 12/15/17 Current Medications Acyclovir (Zovirax -) 400 mg PO TID [facility] Last Admin: 06/11/18 05:57 Dose: 400 mg Atorvastatin Calcium (Lipitor -) 20 mg PO [facility] Last Admin: 06/10/18 21:42 Dose: 20 mg Ferrous Sulfate (Feosol -) 325 mg PO DAILY [facility] Last Admin: 06/11/18 10:45 Dose: 325 mg Heparin Sodium (Porcine) (Heparin -) 5,000 unit SQ TID [facility] Last Admin: 06/11/18 05:56 Dose: 5,000 unit Azithromycin (Zithromax 500mg Ivpb (Pre-Docked)) 500 mg in 250 mls @ 500 mls/ hr IVPB DAILY [facility] Last Admin: 06/11/18 10:44 Dose: 500 mls/hr Ceftriaxone Sodium 1 gm/ (Dextrose) 50 mls @ 100 mls/hr IVPB DAILY [facility]; Protocol Last Admin: 06/11/18 10:42 Dose: 100 mls/hr Levothyroxine Sodium (Synthroid -) 125 mcg PO DAILY@0700 [facility] Last Admin: 06/11/18 10:45 Dose: Not Given Non-Formulary Medication (Pilocarpine Hcl [Pilocarpine Hcl]) 5 mg PO TID [facility] Oseltamivir Phosphate (Tamiflu -) 75 mg PO BID [facility] Stop: 06/13/18 11:59 Last Admin: 06/11/18 10:55 Dose: 75 mg ASSESSMENT/PLAN: 57 y.o. M w/ PMHx. of hypothyroid, HTN, Sjogren's who presents to the ED c/o 1 week Hx. fever and weakness. #Sepsis likely 2/2 fluB+ Received a dose of Ceftriaxone, Acyclovir and Azithromycin in ED C/w Tamiflu 75mg BID BCx. growing gram pos. cocci in chaain intially; Rpt. BCx. growin Staph gram neg --> likely contaminants , UCx. growing E.Coli however low CFU therefore likely contaminant, Legionella Ag. negative Droplet precautions Incentive spirometer PA and Lateral c/w Ceftriaxone (Day 4 of Abx.) #Mouth Sores likely herpetic in nature c/w Acyclovir #Anemia c/w Iron sulfate will mention IV iron on d/c as the bioavailabitlity of Fe sulfate is low and Pt. resented with low hgB while on therapy and w/o bleeding source. IV Iron not given because of Pt.s septic presentation and precaution against providing an additional substrate for bacterial reactions. #Hyponatremia-resolved appears euvolemic. may be 2/2 hypothyroidism asymptomatic f/u AM cortisol Urine Osm- 284, Ur Cr.-28, Ur. Na-64 #Hypokalemia-resolved may be 2/2 vomiting, diarrhea may also be due to HCTZ c/w trend #HTN will hold anti-HTN agents at this time c/w monitoring #Hypothyroid decreased Synthroid to 125mcg TSH: 0.04 #Sjogren's c/w pilocarpine #HLD c/w lipitor #F/E/N no IVF, encourage PO intake continue to follow lytes Regular Diet #PPX DVT: Restart Heparin SQ #Dispo med-surg obs Visit type - Emergency Visit Emergency Visit: Yes ED Registration Date: 06/08/18 Care time: The patient presented to the Emergency Department on the above date and was hospitalized for further evaluation of their emergent condition. - New Patient This patient is new to me today: Yes Date on this admission: 06/11/18 - Critical Care Critical Care patient: No - Discharge Referral Referred to [facility] Med P.C.: No
--- NOTE | 2018-06-11 13:33 | PN ---
Teaching Attending Note Name of Resident: Ran Hanna ATTENDING PHYSICIAN STATEMENT I saw and evaluated the patient. I reviewed the resident's note and discussed the case with the resident. I agree with the resident's findings and plan as documented. SUBJECTIVE:c/o dyspnea with cough productive of yellow sputum. slight improvement from yesterday. states ulcers on lips still hurt. denies Cp, fevr, chills, N/V/C/D OBJECTIVE: Last Vital Signs Temp Pulse Resp BP Pulse Ox 97.6 F 73 18 119/73 97 06/11/18 10:00 06/11/18 10:00 06/11/18 10:00 06/11/18 10:00 06/10/18 13:00 General NAD HEENT multiple unroofed ulcers on jurgen border of lower lip CV S1 S2 RRR no murmur/rub/gallop Lungs decreased bases, poor inspiratory effort ASSESSMENT AND PLAN: 57 year old female with Hypothyroidism, Sjogren's, presented with 1 week history of fever, weakness, cough productive of blood tinged sputum, found to be flu positive with LLL Pneumonia. 1.Sepsis secondary to Influenza and LLL CAP with Strep Pneumonia Bacteremia- modest improvement. will obtain sputum cs. no murmur or abdominal pain, will cont with Oseltamivir, Ceftriaxone, and Azithomycin day 4. chest PT. repeat bcx negative. droplet precautions 2. oral herpetic lesions- multiple painful ulcers along the lips highly suggestive of Herpes. cont acylcovir 400mg TID x5 days 3. iron def anemia- iron studies remain low. will give venofer. HGb improved. will need repeat iron studies in 3 months. 4. HTN- normotensive. hold oral agents 5. Hypothyroid- TSH low here. LT4 dose reduced. will need repeat TFT in 6w 6. Ucx- likley colonization as colony count is low and asymptomatic. will not treat 7. sjogren- on pilocarprine 8. dyslipidemia- statin 9. DVT Px - Heparin SQ. 10. overall improved but not at baseline. anticipate discharge in next 24-48H
[2018-06-11] MEDS: ATORVASTATIN CA 20 MG TABLET (FP) PO SCH (21:41)
[2018-06-12] MEDS: ACYCLOVIR 400 MG TABLET PO SCH ×2 (05:53→13:27)
[2018-06-12] MEDS: HEPARIN NA (PORCINE) 5,000 UNITS/ML 1ML VIAL SQ SCH ×2 (05:53→13:27)
[2018-06-12] MEDS: LEVOTHYROXINE NA 125 MCG TABLET (FP) PO SCH (06:01)
[2018-06-12 08:13] LABS: HEMATOCRIT 27.9 % (32.4-45.2); HEMOGLOBIN 9.1 GM/dL (10.7-15.3); MCH 29.2 pg (25.7-33.7); MCHC 32.7 g/dl (32.0-36.0); MEAN CELL VOLUME 89.5 fl (80-96); MEAN PLT VOLUME 10.4 fl (7.5-11.1); PLATELET COUNT 310 K/MM3 (134-434); RBC 3.12 M/mm3 (3.60-5.2); RDW 16.7 % (11.6-15.6); WHITE BLOOD COUNT 5.2 K/mm3 (4.0-10.0)
[2018-06-12] MEDS ORDERED: cefTRIAXone SODIUM 1 GM VIAL ONE (09:41)
[2018-06-12] MEDS ORDERED: DEXTROSE 5%-WATER - 50 ML IVPB ONE (09:42)
[2018-06-12] MEDS: OSELTAMIVIR PHOSPHATE 75 MG CAPSULE PO SCH (09:45)
[2018-06-12] MEDS: CEFTRIAXONE 1 GM in DEXTROSE 5%-WATER - 50 ML IVPB SCH (09:45)
[2018-06-12] MEDS: FERROUS SO4 325 MG TABLET (FP) PO SCH (09:45)
[2018-06-12] MEDS: AZITHROMYCIN IVPB 500 MG/250 ML BAG IVPB SCH (10:35)
[2018-06-12 10:59] VITALS: BP 112/68; PULSE 70; TEMP 98.3
[2018-06-12] MEDS ORDERED: OSELTAMIVIR PHOSPHATE 75 MG CAPSULE PO ONE (13:57)
--- NOTE | 2018-06-12 14:02 | PN ---
Teaching Attending Note Name of Resident: Ran Hanna ATTENDING PHYSICIAN STATEMENT I saw and evaluated the patient. I reviewed the resident's note and discussed the case with the resident. I agree with the resident's findings and plan as documented. SUBJECTIVE:asymptomatic. breathing is significantly improved. has small cough without much sputum. lesions on lips are crusting over. denies Cp, SOB, fever, chills, N/V/C/D OBJECTIVE: Last Vital Signs Temp Pulse Resp BP Pulse Ox 98.3 F 70 20 112/68 98 06/12/18 10:00 06/12/18 10:00 06/12/18 10:00 06/12/18 10:00 06/12/18 13:00 General NAD HEENT lesions on jurgen border appear to be crusting CV S1 S2 RRR no murmur/rub/gallop Lungs CTA B/l no wheezing/rales/rhonchi ASSESSMENT AND PLAN: 57 year old female with Hypothyroidism, Sjogren's, presented with 1 week history of fever, weakness, cough productive of blood tinged sputum, found to be flu positive with LLL Pneumonia. 1.Sepsis secondary to Influenza and LLL CAP with Strep Pneumonia Bacteremia- clinically improved. today is day 5 of IV ABx. will switch to amoxicillin to complete 10 day course. last dose of tamilflu today. will need repeat CXR in 6 weeks. 2. oral herpetic lesions- multiple painful ulcers along the lips highly suggestive of Herpes. cont acylcovir 400mg TID x5 days 3. iron def anemia- iron studies remain low. HGb improved. will need repeat iron studies in 3 months. 4. HTN- normotensive. hold oral agents 5. Hypothyroid- TSH low here. LT4 dose reduced. will need repeat TFT in 6w 6. Ucx- likley colonization as colony count is low and asymptomatic. will not treat 7. sjogren- on pilocarprine 8. dyslipidemia- statin 9. DVT Px - Heparin SQ. 10.d/c home
--- NOTE | 2018-06-12 14:07 | DS ---
Physical Exam: SUBJECTIVE: Patient seen and examined OBJECTIVE: Vital Signs Period Temp Pulse Resp BP Sys/Wallace Pulse Ox Last 24 Hr 97.9 F-98.6 F 60-73 18-20 112-121/61-80 98-98 PHYSICAL EXAM GENERAL: The patient is awake, alert, and fully oriented, in no acute distress. HEAD: Normal with no signs of trauma. EYES: PERRL, extraocular movements intact, sclera anicteric, conjunctiva clear. ENT: Ears normal, nares patent, oropharynx clear without exudates, moist mucous membranes. NECK: Trachea midline, full range of motion, supple. LUNGS: Breath sounds equal, clear to auscultation bilaterally, no wheezes, no crackles, no accessory muscle use. HEART: Regular rate and rhythm, S1, S2 without murmur, rub or gallop. ABDOMEN: Soft, nontender, nondistended, normoactive bowel sounds, no guarding, no rebound, no hepatosplenomegaly, no masses. EXTREMITIES: 2+ pulses, warm, well-perfused, no edema. NEUROLOGICAL: Cranial nerves II through XII grossly intact. Normal speech, gait not observed. PSYCH: Normal mood, normal affect. SKIN: Warm, dry, normal turgor, no rashes or lesions noted. LABS Laboratory Results - last 24 hr 06/11/18 06/12/18 06:50 06:30 WBC 5.2 RBC 3.12 L Hgb 9.1 L Hct 27.9 L MCV 89.5 MCH 29.2 MCHC 32.7 RDW 16.7 H Plt Count 310 MPV 10.4 Manual Slide Review Platelet Comment No clumping noted HIV Genotype Non reactive HOSPITAL COURSE: Date of Admission:06/08/18 Date of Discharge: 06/12/18 Discharge Summary Reason For Visit: SJOGREN'S SYNDROME, INFLUENZA DUE TO INFLUENZA Current Active Problems Cough (Acute) Fever (Acute) Influenza B (Acute) Sepsis (Acute) Condition: Good - Instructions Diet, Activity, Other Instructions: You came in for 1 week of fever and weakness. We treated you with antibiotics and IV fluids. We are starting you on Amoxicillin 1,000mg THREE times a day for 5 days We are starting you on Acyclovir 400mg THREE times a day for 7 more doses Please take your last dose of Tamiflu tonight at 10pm. We have decreased your Levothyroxine to 125mcg ONCE per Day. Please take as prescribed. Please follow up with your PCP for thyroid function tests in 6 weeks. Please resume all other medications as prescribed. Please follow up with your Primary Care Physician within 1 week, if you do not have one we have provided one for you, Dr. Gordon. You will need a repeat chest Xray in 6 weeks to ensure your infection has cleared. Also you should have your iron studies repeated in 3 months. Please return to the ED if you are having worsening shortness of breath, chest pain, abdominal pain, fever, chills or any concerning symptoms. Referrals: Jamie Gordon MD [Staff Physician] - 1 Week Disposition: HOME - Home Medications Comprehensive Discharge Medication List: Ambulatory Orders Losartan Potassium 50 mg PO DAILY 04/01/12 Atorvastatin Ca [Lipitor] 20 mg PO HS 08/01/14 Hydrochlorothiazide 25 mg PO DAILY 12/14/17 Pilocarpine HCl 5 mg PO TID 12/14/17 Ferrous Sulfate 325 mg PO DAILY #30 tablet 12/15/17 Acyclovir [Zovirax -] 400 mg PO TID #7 tablet 06/12/18 Amoxicillin - [Amoxicillin 500mg Capsule -] 500 mg PO TID #15 capsule 06/12/18 Levothyroxine [Synthroid -] 125 mcg PO DAILY@0700 #30 tablet 06/12/18 - Discharge Referral Referred to [facility] Med P.C.: No
== END 2018-06-12 15:08 | disposition home or self-care (01) | DRG 871 ==
LOC: JER 20:54 → JERBED 06-08 00:27 → J8W 06-08 15:50 → OBSVTOIN 06-08 20:51
PROVIDERS: ADMIT Internal Medicine; ATTEND Internal Medicine
DX: A40.3 Sepsis due to Streptococcus pneumoniae (principal); J10.00 Influenza due to other identified influenza virus with unspecified type of pneumonia; E87.1 Hypo-osmolality and hyponatremia; I10 Essential (primary) hypertension; E03.9 Hypothyroidism, unspecified; M35.00 Sjogren syndrome, unspecified; E87.6 Hypokalemia; E88.09 Other disorders of plasma-protein metabolism, not elsewhere classified; E66.9 Obesity, unspecified; K13.0 Diseases of lips; K14.0 Glossitis; D50.9 Iron deficiency anemia, unspecified; E78.5 Hyperlipidemia, unspecified; Z68.39 Body mass index [BMI] 39.0-39.9, adult
CPT/HCPCS: 36415; 71045-TC-FY; 71046-TC-FY; 80048; 80053; 81003; 82533; 82565; 82607; 82728; 82746; 82803; 83540; 83550; 83605; 83735; 83930; 83935; 84100; 84300; 84443; 84484; 85025; 85027; 85610; 85730; 87040; 87070; 87077; 87086; 87186; 87205; 87389; 87804; 87899; 93005; 93010; 94010; 99285-25; G0378; G9035; J1644; J7030

== ENCOUNTER 2021-10-12 18:29 | Emergency (ER) | payer OTHER ==
[2021-10-12 18:35] VITALS: BP 115/70; PULSE 74; RESP 18; TEMP 97; BMI 38.9
[2021-10-12] MEDS ORDERED: ACETAMINOPHEN 500 MG TABLET (FP) PO ONE (20:10)
[2021-10-12] MEDS ORDERED: MUPIROCIN CA 2% TOPICAL CREAM 15 GM TUBE TP ONE (20:11)
[2021-10-12] MEDS ORDERED: ACETAMINOPHEN 325 MG TABLET (FP) ONE (20:22)
== END 2021-10-12 21:31 | disposition home or self-care (01) ==
LOC: JER 18:29
DX: L03.116 Cellulitis of left lower limb (principal)
CPT/HCPCS: 93971-TC; 99284-25

== ENCOUNTER 2023-02-10 12:59 | Emergency (ER) | payer OTHER ==
[2023-02-10 13:07] VITALS: BP 126/86; PULSE 80; RESP 16; TEMP 99.4; BMI 37.7
[2023-02-10] MEDS ORDERED: ACETAMINOPHEN 325 MG TABLET (FP) PO ONE (14:21)
[2023-02-10] MEDS ORDERED: ACETAMINOPHEN 325 MG TABLET (FP) ONE (14:30)
== END 2023-02-10 16:10 | disposition home or self-care (01) ==
LOC: FER 12:59
DX: R05.9 Cough, unspecified (principal); R50.9 Fever, unspecified; R51.9 Headache, unspecified; M79.10 Myalgia, unspecified site; R09.81 Nasal congestion; R09.3 Abnormal sputum; J18.9 Pneumonia, unspecified organism; Z20.822 Contact with and (suspected) exposure to COVID-19
CPT/HCPCS: 0241U-QW; 71046-TC-FY; 99284-25

== ENCOUNTER 2023-08-23 20:42 | Emergency (ER) | payer OTHER ==
[2023-08-23 20:49] VITALS: BP 100/56; PULSE 66; RESP 18; TEMP 98; BMI 38.9
[2023-08-23] MEDS ORDERED: ACETAMINOPHEN 325 MG TABLET (FP) ONE (21:33)
[2023-08-23] MEDS: ACETAMINOPHEN 500 MG TABLET (FP) PO ONE (21:54)
== END 2023-08-24 01:42 | disposition home or self-care (01) ==
LOC: JER 20:42
DX: M71.22 Synovial cyst of popliteal space [Baker], left knee (principal)
CPT/HCPCS: 93970-TC; 99284-25

== ENCOUNTER 2023-11-03 13:29 | Inpatient (IN) | payer OTHER ==
[2023-11-03] MEDS ORDERED: ACETAMINOPHEN INJECTION 100 ML ONE (15:19)
[2023-11-03] MEDS ORDERED: ONDANSETRON 4 MG/2 ML VIAL ONE (15:19)
[2023-11-03 17:32] LABS: HEMOGLOBIN 8.5 GM/dL (10.7-15.3); MCH 30.6 pg (25.7-33.7); MCHC 31.5 g/dl (32.0-36.0); MEAN CELL VOLUME 97.2 fl (80-96); PLATELET COUNT 299 10^3/uL (134-434); RBC 2.77 M/mm3 (3.60-5.2); RDW 16.1 % (11.6-15.6); WHITE BLOOD COUNT 4.7 K/mm3 (4.0-10.0)
[2023-11-03] MEDS: ONDANSETRON 4 MG/2 ML VIAL IVPUSH ONE (17:38)
[2023-11-03] MEDS: ONDANSETRON *ODT* 4 MG TABLET SL ONE (17:38)
[2023-11-03] MEDS: ACETAMINOPHEN 1000 MG/100 ML BAG IVPB ONE (17:38)
[2023-11-03 17:49] LABS: CALCIUM 8.2 mg/dL (8.5-10.1)
[2023-11-03 17:50] LABS: ALBUMIN 3.3 g/dl (3.4-5.0); BLOOD UREA NITROGEN 49.1 mg/dL (7-18)
[2023-11-03 17:53] LABS: CREATININE 1.4 mg/dL (0.55-1.3)
[2023-11-03 17:54] LABS: TOT PROT 9.2 g/dl (6.4-8.2)
[2023-11-03 17:55] LABS: BILIRUBIN,TOTAL 0.2 mg/dL (0.2-1)
[2023-11-03] MEDS: SODIUM CHLORIDE 1,000 ML IV STA (19:19)
[2023-11-03 19:27] LABS: EPI CELLS 2 /uL (0-25.1); HYALINE CASTS 0 /uL (0-3.1); PH,URINE 6.5 (5.0-8.0); URINE APPEARANCE CLEAR; URINE BACTERIA 7 /uL (0-1359); URINE BILIRUBIN NEGATIVE (NEGATIVE); URINE COLOR YELLOW; URINE GLUCOSE (UA) NEGATIVE (NEGATIVE); URINE KETONE NEGATIVE (NEGATIVE); URINE LEUK ESTERASE NEGATIVE (NEGATIVE); URINE NITRITE NEGATIVE (NEGATIVE); URINE PROTEIN 1+ (NEGATIVE); URINE RBC 10 /uL (0-23.9); URINE UROBILINOGEN 0.2 mg/dL (0.2-1.0); URINE WBC 2 /uL (0-25.8)
[2023-11-03] MEDS: SODIUM CHLORIDE 1,000 ML IV SCH (21:54)
[2023-11-04] MEDS ORDERED: ONDANSETRON 4 MG/2 ML VIAL IVPUSH PRN (06:13)
[2023-11-04] MEDS ORDERED: ACETAMINOPHEN 1000 MG/100 ML BAG IVPB PRN (06:13)
[2023-11-04] MEDS: LEVOTHYROXINE NA 25 MCG TABLET (FP) PO SCH (07:19)
[2023-11-04] MEDS: SODIUM CHLORIDE 1,000 ML IV SCH (07:19)
[2023-11-04] MEDS ORDERED: LEVOTHYROXINE NA 25 MCG TABLET (FP) ONE (07:21)
[2023-11-04 08:33] LABS: BASO % 1.2 % (0-2.0); HEMOGLOBIN 8.8 GM/dL (10.7-15.3); LYMPH % 18.3 % (8-40); MCH 30.9 pg (25.7-33.7); MCHC 31.4 g/dl (32.0-36.0); MEAN CELL VOLUME 98.3 fl (80-96); MEAN PLT VOLUME 8.8 fl (7.5-11.1); MONO % 6.6 % (3.8-10.2); NEUT % 70.9 % (42.8-82.8); PLATELET COUNT 302 10^3/uL (134-434); RBC 2.85 M/mm3 (3.60-5.2); RDW 16.1 % (11.6-15.6); WHITE BLOOD COUNT 4.9 K/mm3 (4.0-10.0)
[2023-11-04 08:42] LABS: POTASSIUM 5.1 mmol/L (3.5-5.1)
[2023-11-04 08:46] LABS: ALBUMIN 3.3 g/dl (3.4-5.0); CALCIUM 8.4 mg/dL (8.5-10.1)
[2023-11-04 08:47] LABS: BLOOD UREA NITROGEN 39.3 mg/dL (7-18); MAGNESIUM 2.6 mg/dL (1.8-2.4)
[2023-11-04 08:49] LABS: CREATININE 1.3 mg/dL (0.55-1.3)
[2023-11-04 08:50] LABS: PHOSPHOROUS 3.2 mg/dL (2.5-4.9)
[2023-11-04 08:51] LABS: BILIRUBIN,TOTAL 0.3 mg/dL (0.2-1); TOT PROT 9.2 g/dl (6.4-8.2)
[2023-11-04 08:54] LABS: N-TERMINAL BNP 223.4 pg/ml (5-125)
[2023-11-04] MEDS ORDERED: POTASSIUM CHLORIDE ORAL LIQUID 20 MEQ/15 ML PO SCH (10:00)
[2023-11-04] MEDS ORDERED: ATORVASTATIN CA 20 MG TABLET (FP) ONE (22:04)
[2023-11-04] MEDS: ATORVASTATIN CA 20 MG TABLET (FP) PO SCH (22:07)
[2023-11-05 07:46] LABS: EOS % 4.5 % (0-4.5); HEMATOCRIT 27.6 % (32.4-45.2); HEMOGLOBIN 8.6 GM/dL (10.7-15.3); LYMPH % 20.5 % (8-40); MCH 30.8 pg (25.7-33.7); MCHC 31.3 g/dl (32.0-36.0); MEAN CELL VOLUME 98.2 fl (80-96); MEAN PLT VOLUME 9.1 fl (7.5-11.1); MONO % 9.5 % (3.8-10.2); NEUT % 64.5 % (42.8-82.8); PLATELET COUNT 298 10^3/uL (134-434); RBC 2.81 M/mm3 (3.60-5.2); RDW 15.8 % (11.6-15.6); WHITE BLOOD COUNT 3.9 K/mm3 (4.0-10.0)
[2023-11-05 08:09] LABS: POTASSIUM 4.7 mmol/L (3.5-5.1)
[2023-11-05 08:13] LABS: ALBUMIN 3.2 g/dl (3.4-5.0); BLOOD UREA NITROGEN 32.2 mg/dL (7-18); CALCIUM 8.7 mg/dL (8.5-10.1)
[2023-11-05 08:16] LABS: CREATININE 1.3 mg/dL (0.55-1.3)
[2023-11-05 08:18] LABS: BILIRUBIN,TOTAL 0.7 mg/dL (0.2-1)
[2023-11-05] MEDS ORDERED: LEVOTHYROXINE NA 25 MCG TABLET (FP) ONE (10:16)
[2023-11-05 11:49] LABS: ARTERIAL BLD GAS O2 SATURATION 97.5 % (95-98); ARTERIAL BLOOD GAS BASE EXCESS -16.2 mmol/L (-2-2); ARTERIAL BLOOD GAS PO2 113.8 mmHg (80-100); ARTERIAL BLOOD GAS pH 7.235 (7.350-7.450)
[2023-11-05 11:50] LABS: ALLENS TEST POSITIVE
[2023-11-05] MEDS ORDERED: LEVOTHYROXINE NA 50 MCG TABLET (FP) ONE (13:51)
[2023-11-05] MEDS: LEVOTHYROXINE NA 50 MCG TABLET (FP) PO SCH (13:58)
[2023-11-06 10:00] LABS: EOS % 3.7 % (0-4.5); HEMATOCRIT 26.4 % (32.4-45.2); HEMOGLOBIN 8.7 GM/dL (10.7-15.3); LYMPH % 22.4 % (8-40); MCH 31.4 pg (25.7-33.7); MCHC 32.9 g/dl (32.0-36.0); MEAN CELL VOLUME 95.4 fl (80-96); MEAN PLT VOLUME 8.8 fl (7.5-11.1); MONO % 6.2 % (3.8-10.2); NEUT % 66.7 % (42.8-82.8); PLATELET COUNT 302 10^3/uL (134-434); RBC 2.76 M/mm3 (3.60-5.2); RDW 15.7 % (11.6-15.6); WHITE BLOOD COUNT 3.9 K/mm3 (4.0-10.0)
[2023-11-06] MEDS: POLYETHYLENE GLYCOL (HEALTHYLAX) 3350 17 GM PACKET PO SCH (10:44)
[2023-11-06] MEDS: ACETAMINOPHEN 325 MG TABLET (FP) PO PRN (12:11)
[2023-11-06 15:43] VITALS: BMI 39.4
[2023-11-06] MEDS: SODIUM BICARBONATE 650 MG TABLET PO SCH (16:44)
[2023-11-06 16:48] LABS: ALBUMIN 3.2 g/dl (3.4-5.0); BILIRUBIN,TOTAL 0.3 mg/dL (0.2-1); BLOOD UREA NITROGEN 31.4 mg/dL (7-18); CALCIUM 8.5 mg/dL (8.5-10.1); CREATININE 1.4 mg/dL (0.55-1.3); MAGNESIUM 2.5 mg/dL (1.8-2.4); PHOSPHOROUS 3.7 mg/dL (2.5-4.9); TOT PROT 8.8 g/dl (6.4-8.2)
[2023-11-07 09:50] LABS: POTASSIUM 3.7 mmol/L (3.5-5.1)
[2023-11-07 10:03] LABS: ALBUMIN 3.2 g/dl (3.4-5.0); MAGNESIUM 2.5 mg/dL (1.8-2.4)
[2023-11-07 10:06] LABS: CALCIUM 8.3 mg/dL (8.5-10.1); PHOSPHOROUS 4.1 mg/dL (2.5-4.9)
[2023-11-07 10:07] LABS: BILIRUBIN,TOTAL 0.3 mg/dL (0.2-1); TOT PROT 8.9 g/dl (6.4-8.2)
[2023-11-07 10:10] LABS: CREATININE 1.4 mg/dL (0.55-1.3)
[2023-11-07] MEDS: SODIUM CHLORIDE 1,000 ML IV SCH (12:02)
[2023-11-07] MEDS ORDERED: ACETAMINOPHEN 325 MG TABLET (FP) PO PRN (14:59)
[2023-11-07] MEDS ORDERED: ONDANSETRON 4 MG/2 ML VIAL IVPUSH PRN (14:59)
[2023-11-07] MEDS: SODIUM BICARBONATE 650 MG TABLET PO SCH (18:21)
[2023-11-07] MEDS: ATORVASTATIN CA 20 MG TABLET (FP) PO SCH (22:41)
[2023-11-08] MEDS: LEVOTHYROXINE NA 50 MCG TABLET (FP) PO SCH (06:46)
[2023-11-08 07:35] LABS: BASO % 0.8 % (0-2.0); EOS % 3.1 % (0-4.5); HEMATOCRIT 26.6 % (32.4-45.2); HEMOGLOBIN 8.6 GM/dL (10.7-15.3); LYMPH % 18.9 % (8-40); MCH 30.9 pg (25.7-33.7); MCHC 32.3 g/dl (32.0-36.0); MEAN CELL VOLUME 95.6 fl (80-96); MEAN PLT VOLUME 8.9 fl (7.5-11.1); MONO % 7.5 % (3.8-10.2); NEUT % 69.7 % (42.8-82.8); PLATELET COUNT 318 10^3/uL (134-434); RBC 2.79 M/mm3 (3.60-5.2); RDW 15.4 % (11.6-15.6); WHITE BLOOD COUNT 5.3 K/mm3 (4.0-10.0)
[2023-11-08 07:49] LABS: POTASSIUM 3.6 mmol/L (3.5-5.1)
[2023-11-08 07:54] LABS: CALCIUM 8.7 mg/dL (8.5-10.1)
[2023-11-08 07:55] LABS: ALBUMIN 3.2 g/dl (3.4-5.0); BLOOD UREA NITROGEN 33.7 mg/dL (7-18); MAGNESIUM 2.4 mg/dL (1.8-2.4)
[2023-11-08 07:58] LABS: CREATININE 1.3 mg/dL (0.55-1.3)
[2023-11-08 08:00] LABS: BILIRUBIN,TOTAL 0.3 mg/dL (0.2-1); TOT PROT 8.8 g/dl (6.4-8.2)
[2023-11-08] MEDS: POLYETHYLENE GLYCOL (HEALTHYLAX) 3350 17 GM PACKET PO SCH (10:36)
[2023-11-08] MEDS: POTASSIUM CHLORIDE TABS 20 MEQ TABLET.ER (FP) PO SCH (10:36)
[2023-11-08] MEDS: SODIUM BICARBONATE 650 MG TABLET PO SCH (15:32)
[2023-11-09] MEDS: LEVOTHYROXINE NA 125 MCG TABLET (FP) PO SCH (06:41)
[2023-11-09 09:12] LABS: BASO % 0.7 % (0-2.0); EOS % 3.1 % (0-4.5); HEMATOCRIT 25.4 % (32.4-45.2); HEMOGLOBIN 8.4 GM/dL (10.7-15.3); LYMPH % 17.5 % (8-40); MCH 31.3 pg (25.7-33.7); MCHC 33.2 g/dl (32.0-36.0); MEAN CELL VOLUME 94.1 fl (80-96); MONO % 8.6 % (3.8-10.2); NEUT % 70.1 % (42.8-82.8); PLATELET COUNT 328 10^3/uL (134-434); RBC 2.69 M/mm3 (3.60-5.2); RDW 15.4 % (11.6-15.6); WHITE BLOOD COUNT 5.7 K/mm3 (4.0-10.0)
[2023-11-09 09:16] LABS: POTASSIUM 3.6 mmol/L (3.5-5.1)
[2023-11-09 09:22] LABS: CALCIUM 8.5 mg/dL (8.5-10.1)
[2023-11-09 09:23] LABS: ALBUMIN 3.3 g/dl (3.4-5.0)
[2023-11-09 09:26] LABS: CREATININE 1.4 mg/dL (0.55-1.3)
[2023-11-09 09:28] LABS: BILIRUBIN,TOTAL 0.2 mg/dL (0.2-1)
[2023-11-09 15:49] VITALS: BP 110/82; PULSE 93; RESP 18; TEMP 98.9
[2023-11-10 17:06] LABS: FREE KAPPA,SERUM 107.8 mg/L (3.3-19.4)
[2023-11-10 18:08] LABS: IG A QN SERUM. 341 mg/dL (87-352)
== END 2023-11-09 16:27 | disposition home or self-care (01) | DRG 812 ==
LOC: JER 13:29 → JERBED 20:26 → J6W 11-05 15:44 → J4W 11-06 19:14 → OBSVTOIN 11-07 09:38
PROVIDERS: ADMIT Internal Medicine; ATTEND Internal Medicine
PROC: 079T3ZX Drainage of Bone Marrow, Percutaneous Approach, Diagnostic (ICD-10-PCS; principal; 2023-11-09)
DX: D64.9 Anemia, unspecified (principal); I50.30 Unspecified diastolic (congestive) heart failure; N17.9 Acute kidney failure, unspecified; E87.20 Acidosis, unspecified; M35.00 Sjogren syndrome, unspecified; I11.0 Hypertensive heart disease with heart failure; E03.9 Hypothyroidism, unspecified; N28.1 Cyst of kidney, acquired; K59.00 Constipation, unspecified; E66.9 Obesity, unspecified; Z68.39 Body mass index [BMI] 39.0-39.9, adult
CPT/HCPCS: 0241U-QW; 20225; 36415; 36600; 71046-TC-FY; 74177-TC; 76700-TC; 76775-TC; 77012-TC; 80053; 80061; 81003; 82436; 82570; 82607; 82728; 82746; 82784; 82803; 82962; 83036; 83540; 83550; 83615; 83735; 83880; 83883; 83935; 84100; 84133; 84155; 84165; 84300; 84439; 84443; 84484; 84540; 85025; 85027; 85045; 86704; 87086; 87340; 88300-TC; 93005; 93010; 93306-TC; 97116-GP; 97161-GP; 99285-25; G0378; J0131; Q9967